=== PATIENT | male | born 1950 | race Caucasian/White ===

== ENCOUNTER 2023-06-26 13:24 | Outpatient (REF) | payer MEDICARE, SELFPAY ==
[2023-06-26 16:07] LABS: MANUAL DIFF FLAG NO
[2023-06-26 16:27] LABS: Appearance Urine Clear; Basophils Percent Auto 0.4 % (0-2); Color Urine Yellow; Eosinophils Absolute Auto 0.1 X10*3/uL (0.0-0.4); Eosinophils Percent Auto 2.1 % (0-4); Glucose Urine UA Negative (Negative); Hematocrit 44.4 % (42.0-52.0); Hemoglobin 14.8 g/dl (14.0-18.0); Imm Gran Abs Auto 0.01 X10*3/uL (0.00-0.03); Imm Gran Pct Auto 0.2 % (0.0-0.4); Leukocyte Esterase Urine Negative (Negative); Lymphocytes Absolute Auto 1.4 X10*3/uL (1.2-4.9); Lymphocytes Percent Auto 28.7 % (20-40); Mean Corpuscular HGB Conc 33.3 g/dl (31.0-36.0); Mean Corpuscular Hemoglobin 28.6 pg (27.0-33.0); Mean Corpuscular Volume 85.9 fL (80.0-98.0); Mean Platelet Volume 11.3 fL (9.4-12.4); Monocytes Absolute Auto 0.3 X10*3/uL (0.1-1.2); Monocytes Percent Auto 5.5 % (2-11); Neutrophils Percent Auto 63.1 % (45-73); Nitrite Urine Negative (Negative); PH 7.5 (5.0-9.0); Platelet Count 217 X10*3/uL (160-400); Red Blood Count 5.17 X10*6/uL (4.60-5.80); Red Cell Distribution Width 13.3 % (11.0-16.0); Urine Blood Negative (Negative); Urine Ketones Negative (Negative); Urine Protein Negative (Neg-Trace); White Blood Count 4.7 X10*3/uL (4.8-10.8)
[2023-06-26 16:33] LABS: Bacteria Urine None Seen (None Seen); Hyaline Casts Urine 0-2 /LPF (0-2); RBC Urine 0-2 /HPF (0-2); Squamous Epithelial Cell Urine 0-2 /HPF (0-2); WBC Urine 0-5 /HPF (0-5)
[2023-06-26 16:47] LABS: Alanine Aminotransferase 34 U/L (0-40); Albumin Level 4.3 g/dL (3.5-5.0); Alkaline Phosphatase 57 U/L (39-117); Anion Gap 13 (12-20); Aspartate Amino Transferase 37 U/L (5-37); Bilirubin Total 0.6 mg/dL (0.0-1.0); Blood Urea Nitrogen 17 mg/dL (9-16); Calcium 9.4 mg/dL (8.4-10.2); Carbon Dioxide 24 mmol/L (22-29); Chloride 105 mmol/L (96-108); Cholesterol 199 mg/dL; Estimated Glomerular Filt Rate > 60; Glucose Fasting 87 mg/dL (60-99); HDL Cholesterol 69 mg/dL; LDL Cholesterol Calculated 118 mg/dl; Sodium 138 mmol/L (135-145); Total Protein 7.3 g/dL (6.5-8.0); Triglycerides 63 mg/dL
[2023-06-26 17:03] LABS: PSA,Total (Free>4and<10) 2.44 ng/mL (0.00-4.00)
== END 2023-06-26 13:25 | disposition home or self-care (01) ==
LOC: HO.HMGCLDS 13:24
PROVIDERS: PCP Internal Medicine; Visit Provider Internal Medicine
DX: Z12.5 Encounter for screening for malignant neoplasm of prostate (principal); I12.9 Hypertensive chronic kidney disease with stage 1 through stage 4 chronic kidney disease, or unspecified chronic kidney disease; N18.30 Chronic kidney disease, stage 3 unspecified; N40.0 Benign prostatic hyperplasia without lower urinary tract symptoms; E78.5 Hyperlipidemia, unspecified
CPT/HCPCS: 36415; 80053; 80061; 81001; 84153; 85025

== ENCOUNTER 2023-07-28 10:14 | Outpatient (AMB) | payer MEDICARE, SELFPAY ==
--- NOTE | 2023-07-28 10:15 | A.OFFPC_ITS ---
Vital Signs 07/28/23 10:16 Height 5 ft 9 in Weight 170 lb BMI 25.1 BP 122/80 Blood Pressure Location Lt brachial Position Sitting Pulse 74 Pulse Source Pulse Oximeter Pulse Oximetry (%) 98 Oxygen Delivery Method Room Air Intake Visit Reasons: 2m follow up CKD Intake Note: Pt is here today for 2 months follow up visit. Allergies No Known Allergies Allergy (Verified 07/28/23 10:17) Medication List - Last Reconciled 07/28/23 by Sadie Song MD bupropion HCl 150 mg PO Q12H doxazosin 6 mg PO DAILY lisinopril-hydrochlorothiazide 20-12.5 mg 1 tab PO DAILY lovastatin 40 mg PO DAILY sildenafil 50 mg PO DAILY PRN Tobacco use date assessed: 04/28/23 Dental Screening Dental Screen Date: 07/28/23 Did you have a dental visit in the last 12 months?: Yes Did you have a dental problem in the last 6 months where you did not have access to dental care?: No Was dental information given to patient?: Patient has dentist HPI 2m follow up CKD HPI Details Patient presents for the follow-up on hypertension and hyperlipidemia, controlled on current medications. [facility] Medical History (Updated 07/28/23 @ 11:02 by Sadie Song MD) Annual physical exam Family History (Updated 04/28/23 @ 08:19 by Sadie Song MD) Brother No problems noted. 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 Marcus Bower, Mana Early, Florentin Singh and colleagues, with an educational natanael from [employer] Review of Systems Const All systems reviewed & are unremarkable except as noted in HPI and below Reports no additional complaints Eyes Reports no additional complaints ENT Reports no additional complaints Card Reports no additional complaints Resp Reports no additional complaints GI Reports no additional complaints Reports no additional complaints Physical exam (Primary Care) Vital Signs: Last Vital Signs Pulse 74 07/28/23 10:16 BP 122/80 07/28/23 10:16 Pulse Ox 98 07/28/23 10:16 Oxygen Delivery Method Room Air 07/28/23 10:16 BMI result Body Mass Index 25.1 Tobacco/Smoking Status: Tobacco use Status Tobacco use date assessed 04/28/23 07/28/23 10:20 Patient Tobacco Use Status Former Tobacco user 07/28/23 10:20 e-Cigarette/Vaping Use Currently Using 07/28/23 10:20 Thrive Assessment: Date of Thrive Assessment Date Thrive assessed 04/28/23 07/28/23 10:20 Const General: no acute distress HENMT Face and sinus: Yes normal facial exam Eyes General: appearance normal, both eyes and all related structures Resp Effort & Inspection: normal respiratory effort Auscultation: clear to auscultation bilaterally Cardio Rhythm: regular rhythm Heart sounds: S1 normal heart sound present and S2 normal heart sound present GI Inspection: Yes normal to inspection Palpation (GI): Soft to palpation Assessment and Plan Assessment & Plan (1) Annual physical exam: Code(s): Z00.00 - Encounter for general adult medical examination without abnormal findings (2) Hyperlipidemia: Code(s): E78.5 - Hyperlipidemia, unspecified Plan: cont statin (3) HTN (hypertension): Code(s): I10 - Essential (primary) hypertension Plan: Continue current medications, return for physical in April (4) Memory loss: Comment: Patient declined neuropsychological evaluation Code(s): R41.3 - Other amnesia Orders: Orders Comprehensive [place]. Panel Fast 04/22/24 E78.5 - Hyperlipidemia, unspecified, I10 - Essential (primary) hypertension, Z00.00 - Encounter for general adult medical examination without abnormal findings Complete Blood Count Auto Diff 04/22/24 E78.5 - Hyperlipidemia, unspecified, I10 - Essential (primary) hypertension, Z00.00 - Encounter for general adult medical examination without abnormal findings Lipid Panel 04/22/24 E78.5 - Hyperlipidemia, unspecified, I10 - Essential (primary) hypertension, Z00.00 - Encounter for general adult medical examination without abnormal findings TSH reflex Free T4 04/22/24 E78.5 - Hyperlipidemia, unspecified, I10 - Essential (primary) hypertension, Z00.00 - Encounter for general adult medical examination without abnormal findings PSA,Total (Free>4and<10) 04/22/24 E78.5 - Hyperlipidemia, unspecified, I10 - Essential (primary) hypertension, Z00.00 - Encounter for general adult medical examination without abnormal findings UA w Microscopic 04/22/24 E78.5 - Hyperlipidemia, unspecified, I10 - Essential (primary) hypertension, Z00.00 - Encounter for general adult medical examination without abnormal findings Uric Acid 04/22/24 E78.5 - Hyperlipidemia, unspecified, I10 - Essential (primary) hypertension, Z00.00 - Encounter for general adult medical examination without abnormal findings Medications: New prednisone 4 tabl qd for 3 days, then 3 tabl qd for 3 days, then 2 tabl qd x 3 days, then 1 tabl qd x 3days 10 mg PO DAILY 30 tabs 0RF sildenafil administer 30 minutes to 4 hours before activity 100 mg PO DAILY PRN 10 tabs 3RF sexual activity Discontinued sildenafil administer 30 minutes to 4 hours before activity Discontinued Reason: Doctor's Order 50 mg PO DAILY PRN 10 tabs 0RF sexual activity Coding Level of Care Code Est Pt Level 3 (67586) Diagnoses Annual physical exam Z00.00 Hyperlipidemia E78.5 HTN (hypertension) I10 Memory loss R41.3
[2023-07-28 10:16] VITALS: BP 122/80; PULSE 74; O2SAT 98; BMI 25.1
== END 2023-07-28 11:03 | disposition home or self-care (01) ==
PROVIDERS: PCP Internal Medicine; Visit Provider Internal Medicine
DX: E78.5 Hyperlipidemia, unspecified (principal); I10 Essential (primary) hypertension; R41.3 Other amnesia
CPT/HCPCS: 99213

== ENCOUNTER 2024-03-14 08:13 | Outpatient (AMB) | payer MEDICARE, SELFPAY ==
[2024-03-14 08:23] VITALS: BP 104/70; PULSE 63; O2SAT 98; BMI 25.8
--- NOTE | 2024-03-14 08:23 | MHC.PC.OV ---
Vital Signs 03/14/24 08:23 Height 5 ft 9 in Weight 175 lb BMI 25.8 BP 104/70 Blood Pressure Location Lt brachial Position Sitting Pulse 63 Pulse Source Pulse Oximeter Pulse Oximetry (%) 98 Oxygen Delivery Method Room Air Intake Visit Reasons: abdominal pain Intake Note: Pt is here today for a sick visit. Pt c/o problem with bowel movement. Allergies No Known Allergies Allergy (Verified 03/14/24 08:34) Medication List - Last Reconciled 03/14/24 by Sadie Song MD doxazosin 6 mg (1.5 x 4 mg) PO DAILY lisinopril-hydrochlorothiazide 20-12.5 mg 1 tab PO DAILY lovastatin 40 mg PO DAILY prednisone 10 mg PO DAILY PRN sildenafil 100 mg PO DAILY PRN Tobacco use date assessed: 03/14/24 Fall risk assessment: No Falls in past year Last assessed Fall Risk: 03/14/24 Dental Screening Dental Screen Date: 03/14/24 Did you have a dental visit in the last 12 months?: Yes Did you have a dental problem in the last 6 months where you did not have access to dental care?: No Was dental information given to patient?: Patient has dentist HPI abdominal pain HPI Details Pt presents c/o 2 weeks of constipation and abd discomfort improved after taking a laxative. Patient reports that he noticed a change in his stool shape be coming more pencil like. He denies hematochezia melena nausea vomiting or weight loss. Hypertension and hyperlipidemia are controlled on current medications [facility] Medical History Annual physical exam Surgical History S/P tonsillectomy Family History Brother No problems noted. 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 1. Little interest or pleasure in doing things: not at all 2. Feeling down, depressed, or hopeless: several days 3. Trouble falling or staying asleep, or sleeping too much: not at all 4. Feeling tired or having little energy: several days 5. Poor appetite or overeating: not at all 6. Feeling bad about yourself - or that you are a failure or have let yourself or your family down: several days 7. Trouble concentrating on things, such as reading the newspaper or watching television: not at all 8. Moving or speaking so slowly that other people could have noticed. Or the opposite - being so fidgety or restless that you have been moving around a lot more than usual: not at all 9. Thoughts that you would be better off or of hurting yourself in some way: not at all Total score: 3 Depression Screening Interpretation: Negative Depression Screening Done: Yes Source: Developed by Drs. Marcus Bower, Mana Early, Florentin Singh and colleagues, with an educational natanael from [employer]. Thrive Questionnaire Date Thrive assessed: 03/14/24 I am a: Patient What is your living situation today?: I have a steady place to live Within the past 12 months, did the food you bought not last and you didn't have the money to get more?: Never true Within the past 12 months, did you worry whether your food would run out before you got money to buy more?: Never true Do you have trouble paying for medicines?: No Do you have trouble getting transportation to medical appointments?: No Do you have trouble paying your heating and electricity bill?: No Do you have trouble taking care of your child, family member or friend?: No Do you have trouble with day-to-day activities such as bathing, preparing meals, shopping, managing finances, etc.?: No Are you currently unemployed and looking for a job?: No Are you interested in more education?: No Please select the resources that you would like help with: None THRIVE Score: 0 AUDIT C Alcohol Use Questionnaire (AUDIT-C) 1. How often do you have a drink containing alcohol?: Monthly or less 2. How many drinks containing alcohol do you have on a typical day when you are drinking?: 1 or 2 3. How often do you have six or more drinks on one occasion?: Never Total Score: 1 TIANNA-7 AMB Questionnaire TIANNA-7 Date TIANNA - 7 assessed: 03/14/24 Feeling nervous, anxious, or on edge: 0 = Not at all Not being able to stop or control worryin = Not at all Worrying too much about different things: 0 = Not at all Trouble relaxin = Not at all Being so restless that it is hard to sit still: 0 = Not at all Becoming easily annoyed or irritable: 0 = Not at all Feeling afraid as if something awful might happen: 0 = Not at all Total TIANNA-7 score (0-4 normal; 5-9 mild; 10-14 moderate; 15-21 severe): 0 Source: Developed by Drs. Marcus Bower, Mana Early, Florentin Singh and colleagues, with an educational natanael from [employer]. Review of Systems Const All systems reviewed & are unremarkable except as noted in HPI and below Reports no additional complaints Eyes Reports no additional complaints ENT Reports no additional complaints Card Reports no additional complaints Resp Reports no additional complaints Reports no additional complaints Physical exam (Primary Care) Vital Signs: Last Vital Signs Pulse 63 03/14/24 08:23 BP 104/70 03/14/24 08:23 Pulse Ox 98 03/14/24 08:23 Oxygen Delivery Method Room Air 03/14/24 08:23 BMI result Body Mass Index 25.8 Tobacco/Smoking Status: Tobacco use Status Tobacco use date assessed 03/14/24 03/14/24 08:38 Patient Tobacco Use Status Former Tobacco user 03/14/24 08:38 e-Cigarette/Vaping Use Currently Using 03/14/24 08:23 PHQ-9: PHQ-9 Score PHQ-9: Total score 3 03/14/24 08:43 Depression Screening Interpretation: Negative Thrive Assessment: Date of Thrive Assessment Date Thrive assessed 03/14/24 03/14/24 08:43 Const General: no acute distress HENMT Head: Yes normal to inspection Throat: Yes posterior oropharynx normal Eyes General: appearance normal, both eyes and all related structures Neck Neck: Yes no lymphadenopathy and Yes supple Resp Effort & Inspection: normal respiratory effort Auscultation: clear to auscultation bilaterally Cardio Rhythm: regular rhythm Heart sounds: S1 normal heart sound present and S2 normal heart sound present GI Inspection: Yes normal to inspection Palpation (GI): Soft to palpation Percussion: Yes normal to percussion Auscultation: normal bowel sounds Assessment and Plan Assessment & Plan (1) CKD (chronic kidney disease) stage 3, GFR 30-59 ml/min: Code(s): N18.30 - Chronic kidney disease, stage 3 unspecified Plan: Avoid nephrotoxin monitor renal function (2) HTN (hypertension): Code(s): I10 - Essential (primary) hypertension Plan: Continue current medications (3) Liver disease: Comment: ETOH Code(s): K76.9 - Liver disease, unspecified (4) Hyperlipidemia: Code(s): E78.5 - Hyperlipidemia, unspecified Plan: Continue statin (5) Constipation: Code(s): K59.00 - Constipation, unspecified Plan: FOR NEW ONSET CONSTIPATION PATIENT WAS ADVISED TO CALL HIS TUBE LANCER AT [facility] TO SCHEDULE A COLONOSCOPY. HIS MOST RECENT ONE WAS IN 2017. COLOGUARD WILL BE CHECKED. Increase fiber, fluid intake and regular physical activity discussed with the patient. Orders: Orders Complete Blood Count Auto Diff Today E78.5 - Hyperlipidemia, unspecified, F32.A - Depression, unspecified, I10 - Essential (primary) hypertension, K76.9 - Liver disease, unspecified, N18.30 - Chronic kidney disease, stage 3 unspecified IRON PROFILE Today E78.5 - Hyperlipidemia, unspecified, F32.A - Depression, unspecified, I10 - Essential (primary) hypertension, K76.9 - Liver disease, unspecified, N18.30 - Chronic kidney disease, stage 3 unspecified Lipid Panel Today E78.5 - Hyperlipidemia, unspecified, F32.A - Depression, unspecified, I10 - Essential (primary) hypertension, K76.9 - Liver disease, unspecified, N18.30 - Chronic kidney disease, stage 3 unspecified PSA,Total (Free>4and<10) Today E78.5 - Hyperlipidemia, unspecified, F32.A - Depression, unspecified, I10 - Essential (primary) hypertension, K76.9 - Liver disease, unspecified, N18.30 - Chronic kidney disease, stage 3 unspecified UA w Microscopic Today E78.5 - Hyperlipidemia, unspecified, F32.A - Depression, unspecified, I10 - Essential (primary) hypertension, K76.9 - Liver disease, unspecified, N18.30 - Chronic kidney disease, stage 3 unspecified Comprehensive Met. Panel Today E78.5 - Hyperlipidemia, unspecified, F32.A - Depression, unspecified, I10 - Essential (primary) hypertension, K76.9 - Liver disease, unspecified, N18.30 - Chronic kidney disease, stage 3 unspecified TSH reflex Free T4 Today E78.5 - Hyperlipidemia, unspecified, F32.A - Depression, unspecified, I10 - Essential (primary) hypertension, K76.9 - Liver disease, unspecified, N18.30 - Chronic kidney disease, stage 3 unspecified Referrals Cologuard Test E78.5 - Hyperlipidemia, unspecified, F32.A - Depression, unspecified, I10 - Essential (primary) hypertension, K76.9 - Liver disease, unspecified, N18.30 - Chronic kidney disease, stage 3 unspecified, Z12.11 - Encounter for screening for malignant neoplasm of colon, Z12.12 - Encounter for screening for malignant neoplasm of rectum Medications: Changed From prednisone 4 tabl qd for 3 days, then 3 tabl qd for 3 days, then 2 tabl qd x 3 days, then 1 tabl qd x 3days 10 mg PO DAILY 30 tabs 0RF To prednisone 4 tabl qd for 3 days, then 3 tabl qd for 3 days, then 2 tabl qd x 3 days, then 1 tabl qd x 3days 10 mg PO DAILY PRN Coding Level of Care Code Est Pt Level 4 (62062) Diagnoses CKD (chronic kidney disease) stage 3, GFR 30-59 ml/min N18.30 HTN (hypertension) I10 Liver disease K76.9 Hyperlipidemia E78.5 Constipation K59.00
== END 2024-03-14 09:26 | disposition home or self-care (01) ==
PROVIDERS: PCP Internal Medicine; Visit Provider Internal Medicine
DX: I12.9 Hypertensive chronic kidney disease with stage 1 through stage 4 chronic kidney disease, or unspecified chronic kidney disease (principal); N18.30 Chronic kidney disease, stage 3 unspecified; K76.9 Liver disease, unspecified; E78.5 Hyperlipidemia, unspecified; K59.00 Constipation, unspecified
CPT/HCPCS: 99214

== ENCOUNTER 2024-08-02 09:21 | Outpatient (REF) | payer MEDICARE, SELFPAY ==
[2024-08-02 13:09] LABS: MANUAL DIFF FLAG NO
[2024-08-02 13:17] LABS: Appearance Urine Clear; Basophils Percent Auto 0.2 % (0-2); Color Urine Yellow; Eosinophils Absolute Auto 0.1 X10*3/uL (0.0-0.4); Eosinophils Percent Auto 2.5 % (0-4); Glucose Urine UA Negative (Negative); Hematocrit 43.1 % (42.0-52.0); Hemoglobin 14.6 g/dl (14.0-18.0); Imm Gran Abs Auto 0.01 X10*3/uL (0.00-0.03); Imm Gran Pct Auto 0.2 % (0.0-0.4); Leukocyte Esterase Urine Negative (Negative); Lymphocytes Absolute Auto 1.2 X10*3/uL (1.2-4.9); Lymphocytes Percent Auto 30.5 % (20-40); Mean Corpuscular HGB Conc 33.9 g/dl (31.0-36.0); Mean Corpuscular Hemoglobin 28.2 pg (27.0-33.0); Mean Corpuscular Volume 83.2 fL (80.0-98.0); Mean Platelet Volume 11.2 fL (9.4-12.4); Monocytes Absolute Auto 0.3 X10*3/uL (0.1-1.2); Monocytes Percent Auto 6.7 % (2-11); Neutrophils Absolute Auto 2.4 x10*3/uL (2.0-8.3); Neutrophils Percent Auto 59.9 % (45-73); Nitrite Urine Negative (Negative); PH 7.5 (5.0-9.0); Platelet Count 213 X10*3/uL (160-400); Red Blood Count 5.18 X10*6/uL (4.60-5.80); Red Cell Distribution Width 13.7 % (11.0-16.0); Specific Gravity - Urine 1.015 (1.005-1.025); Urine Blood Negative (Negative); Urine Ketones Trace mg/dL (Negative); Urine Protein Negative (Neg-Trace)
[2024-08-02 13:24] LABS: Bacteria Urine None Seen (None Seen); Hyaline Casts Urine 0-2 /LPF (0-2); RBC Urine 0-2 /HPF (0-2); Squamous Epithelial Cell Urine 0-2 /HPF (0-2); WBC Urine 0-5 /HPF (0-5)
[2024-08-02 13:45] LABS: Alanine Aminotransferase 42 U/L (0-40); Albumin Level 4.3 g/dL (3.5-5.0); Alkaline Phosphatase 56 U/L (39-117); Anion Gap 14 (12-20); Aspartate Amino Transferase 58 U/L (5-37); Bilirubin Total 0.8 mg/dL (0.0-1.0); Blood Urea Nitrogen 12 mg/dL (9-16); Calcium 9.7 mg/dL (8.4-10.2); Carbon Dioxide 25 mmol/L (22-29); Chloride 101 mmol/L (96-108); Cholesterol 181 mg/dL (<200); Estimated Glomerular Filt Rate > 60; Glucose Fasting 84 mg/dL (60-99); HDL Cholesterol 66 mg/dL (>40); Iron 117 mcg/dL (45-160); LDL Cholesterol Calculated 105 mg/dL (<100); Percent Iron Saturation 40 % (15-50); Potassium 3.9 mmol/L (3.3-5.1); Sodium 136 mmol/L (135-145); Total Iron Binding Capacity 290 mcg/dL (228-428); Total Protein 7.2 g/dL (6.5-8.0); Triglycerides 54 mg/dL (<150); Unsaturated Iron Binding 173 ug/dL; Uric Acid 7.7 mg/dL (3.4-7.0)
[2024-08-02 13:47] LABS: PSA,Total (Free>4and<10) 2.97 ng/mL (0.00-4.00); TSH reflex Free T4 1.88 uIU/mL (0.32-4.0)
== END 2024-08-02 09:22 | disposition home or self-care (01) ==
LOC: HO.HMGCLDS 09:21
PROVIDERS: PCP Internal Medicine; Visit Provider Internal Medicine
DX: Z00.00 Encounter for general adult medical examination without abnormal findings (principal); E78.5 Hyperlipidemia, unspecified; I10 Essential (primary) hypertension; F32.A Depression, unspecified; K76.9 Liver disease, unspecified; N18.30 Chronic kidney disease, stage 3 unspecified; Z12.5 Encounter for screening for malignant neoplasm of prostate
CPT/HCPCS: 36415; 80053; 80061; 81001; 83540; 84153; 84443; 84550; 85025

== ENCOUNTER 2024-08-10 10:58 | Outpatient (AMB) | payer MEDICARE, SELFPAY ==
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
[2024-08-10 11:03] VITALS: BP 138/82; PULSE 82; O2SAT 98; BMI 25.5
== END 2024-08-10 12:23 | disposition home or self-care (01) ==
PROVIDERS: PCP Internal Medicine; Visit Provider Internal Medicine
DX: G62.9 Polyneuropathy, unspecified (principal); R00.2 Palpitations; N52.9 Male erectile dysfunction, unspecified; R09.89 Other specified symptoms and signs involving the circulatory and respiratory systems; R79.89 Other specified abnormal findings of blood chemistry

== ENCOUNTER → 2024-08-10 10:58 | Outpatient (BNVA) | payer MEDICARE, SELFPAY | PROVIDERS: PCP Internal Medicine; Visit Provider Internal Medicine | DX: R00.2 Palpitations (principal); G62.9 Polyneuropathy, unspecified; R09.89 Other specified symptoms and signs involving the circulatory and respiratory systems; R79.89 Other specified abnormal findings of blood chemistry | CPT/HCPCS: 99212 ==

== ENCOUNTER 2024-08-11 12:31 | Outpatient (REF) | payer MEDICARE, SELFPAY ==
[2024-08-11 16:49] LABS: Alanine Aminotransferase 47 U/L (0-40); Albumin Level 4.4 g/dL (3.5-5.0); Alkaline Phosphatase 60 U/L (39-117); Aspartate Amino Transferase 54 U/L (5-37); Bilirubin Direct 0.2 mg/dL (0.0-0.5); Bilirubin Total 0.5 mg/dL (0.0-1.0); Total Protein 7.4 g/dL (6.5-8.0)
[2024-08-11 17:07] LABS: Vitamin D 25-OH Total 39.5 ng/mL (>30)
[2024-08-11 17:21] LABS: Folate 8.9 ng/mL (> or = 4.0); Vitamin B12 524 pg/mL (200-900)
[2024-08-19 06:18] LABS: Vitamin B1 11 nmol/L (8-30)
== END 2024-08-11 12:32 | disposition home or self-care (01) ==
LOC: HO.HMGCLDS 12:31
PROVIDERS: PCP Internal Medicine; Visit Provider Internal Medicine
DX: R79.89 Other specified abnormal findings of blood chemistry (principal); G62.9 Polyneuropathy, unspecified
CPT/HCPCS: 36415; 80076; 82306; 82607; 82746; 84425

== ENCOUNTER 2024-09-08 09:31 | Outpatient (REF) | payer MEDICARE, SELFPAY ==
--- NOTE | ~2024-09-08 | US_ITS ---
EXAMINATION: US ABDOMEN LIMITED WITH LIVER ELASTOGRAPHY CLINICAL INFORMATION: Elevated LFTs COMPARISON: None available. TECHNIQUE: Real-time imaging of the abdominal viscera. Noninvasive ultrasound liver fibrosis assessment is performed using Pérez ElastPQ point quantification shear wave elastography (pSWE) with a 5 MHz transducer. Multiple elastography samples are obtained. FINDINGS: PANCREAS: Normal. The visualized pancreatic head and body are normal in appearance. The remainder of the pancreas is obscured from visualization by the overlying bowel gas. LIVER: Normal. The liver demonstrates normal size, contour and echogenicity. No focal lesion or intrahepatic biliary duct dilatation. The right lobe measures 13.5 cm in length. The left lobe measures 8.0 cm in length. Shear wave elastography provides a median stiffness of 2.01 m/s (reference: normal median stiffness is 0.81 - 1.22 m/s). The IQR/median stiffness to assess sampling precision is 0.17 (reference: optimal IQR/median stiffness is under 0.3). GALLBLADDER: Multiple shadowing stones seen within the gallbladder. No significant gallbladder wall thickening or pericholecystic fluid COMMON BILE DUCT: Normal in caliber measuring 0.5 cm in diameter. RIGHT KIDNEY: There are 2 anechoic simple cysts within the right kidney. Large exophytic cyst off the upper pole measures 7.8 x 7.4 x 6.6 cm. Exophytic cyst off the lower pole measures 3.5 x 3.4 x 3.5 cm. No follow-up indicated. No hydronephrosis. No renal calculi or focal parenchymal lesions. The kidney measures 11.3 cm in maximum dimension. FREE FLUID: None. US/US abdomen castro w elastography IMPRESSION: 1. Liver parenchyma appears unremarkable. 2. Elastography: Liver elastography measurements are consistent with a high risk for clinically significant liver fibrosis (METAVIR Stage F3-F4). Electronically signed by: Jamel Chapin MD 09/20/2024 08:05 AM EDT
--- NOTE | ~2024-09-08 | US_ITS ---
EXAMINATION: US EXTRACRANIAL CAROTID DUPLEX, BILATERAL CLINICAL INFORMATION: Carotid bruit COMPARISON: None available. TECHNIQUE: Real-time ultrasound and Doppler techniques (integrating B-mode 2-D vascular images, Doppler spectral analysis and color-flow Doppler imaging) were utilized to interrogate the extracranial carotid arteries, the vertebral arteries and proximal subclavian arteries bilaterally. The degree of stenosis is determined by criteria similar to NASCET. FINDINGS: Right Side: 1. There is no significant atherosclerotic plaque seen in the bifurcation/proximal ICA region. 2. The common carotid artery PSV proximally is 64.6 cm/s and distally 50.4 cm/s. 3. The proximal internal carotid artery velocities are 40.8 cm/s systolic and 14.6 cm/s diastolic. 4. The proximal external carotid artery PSV is 60.2 cm/s. 5. The vertebral artery shows antegrade flow. 6. The subclavian artery waveforms are normal. Left Side: 1. There is mild atherosclerotic plaque seen in the bifurcation/proximal ICA region. 2. The common carotid artery PSV proximally is 111 cm/s and distally 63.1 cm/s. 3. The proximal internal carotid artery velocities are 42.8 cm/s systolic and 7.7 cm/s diastolic. 4. The proximal external carotid artery PSV is 52 cm/s. 5. The vertebral artery shows antegrade flow. 6. The subclavian artery waveforms are normal. US/US carotid duplex BI IMPRESSION: 1. RIGHT: Normal right internal carotid artery without atherosclerotic plaque or hemodynamically significant stenosis. 2. LEFT: Minimal, non-hemodynamically significant stenosis of the proximal left internal carotid artery corresponding to a 0-49% stenosis by velocity criteria. Electronically signed by: Jamel Chapin MD 09/20/2024 07:44 AM EDT
== END 2024-09-08 09:32 | disposition home or self-care (01) ==
LOC: HO.US 09:31
PROVIDERS: PCP Internal Medicine; Visit Provider Internal Medicine
DX: R09.89 Other specified symptoms and signs involving the circulatory and respiratory systems (principal); R79.89 Other specified abnormal findings of blood chemistry
CPT/HCPCS: 76705; 76981; 93880

== ENCOUNTER 2024-09-15 09:07 | Outpatient (AMB) | payer MEDICARE, SELFPAY ==
[2024-09-15 09:09] VITALS: BP 110/78; PULSE 54; O2SAT 96; BMI 26.0
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
== END 2024-09-15 10:09 | disposition home or self-care (01) ==
PROVIDERS: PCP Internal Medicine; Visit Provider Internal Medicine
DX: Z00.00 Encounter for general adult medical examination without abnormal findings (principal); I10 Essential (primary) hypertension; G62.9 Polyneuropathy, unspecified; E78.5 Hyperlipidemia, unspecified; K76.9 Liver disease, unspecified; R79.89 Other specified abnormal findings of blood chemistry

== ENCOUNTER → 2024-09-15 09:07 | Outpatient (BNVA) | payer MEDICARE, SELFPAY | PROVIDERS: PCP Internal Medicine; Visit Provider Internal Medicine | DX: Z00.01 Encounter for general adult medical examination with abnormal findings (principal); I10 Essential (primary) hypertension; G62.9 Polyneuropathy, unspecified; E78.5 Hyperlipidemia, unspecified; R79.89 Other specified abnormal findings of blood chemistry; K76.9 Liver disease, unspecified | CPT/HCPCS: 99397 ==

== ENCOUNTER 2024-11-08 14:34 | Outpatient (AMB) | payer MEDICARE, SELFPAY ==
--- OUTSIDE RECORDS SUMMARY | 2024-11-08 14:36 | XMS_ITS ---
[facility] Name [facility] Unknown History of Medication Use Medication Directions Dispensed Refills Start Date End Date Stat amLODIPine (NORVASC) 5 MG tablet Take 5 mg by mouth daily. 10/12/2024 11/22/9999 active aspirin enteric coated (ECOTRIN LOW STRENGTH) 81 MG EC tablet Take 81 mg by mouth daily. 10/12/2024 11/22/9999 active lisinopril-hydrochl orothiazide (PRINZIDE,ZESTORETI C) 20-12.5 MG per tablet Take by mouth. 10/12/2024 11/22/9999 active sildenafil (REVATIO) 20 MG tablet TAKE DIRECTED, 1 HR PRIOR TO NEED 10/12/2024 11/22/9999 active buPROPion (WELLBUTRIN SR) 150 MG 12 hr tablet Take by mouth 2 (two) times a day. 10/12/2024 11/22/9999 active lovastatin (MEVACOR) 10 MG tablet Take 10 mg by mouth daily. 10/12/2024 11/22/9999 active Problems Problem Status Onset Date Problem Type Date of Resoluti on Source Abnormal liver function active 2018-08-04 ProblemAct [facility] Liver disease active EncounterDiagnosisAct [facility] Immunizations Vaccine Date Source Lot Number Status Covid-19 MRNA Vaccine - Pfiz er 12+ (Purple Cap) 03/02/2021 [facility] [id number] completed Covid-19 MRNA Vaccine - Pfiz er 12+ (Purple Cap) 02/09/2021 [facility] [id number] completed Covid-19 MRNA Vaccine - Pfiz er 12+ (Purple Cap) 09/12/2021 [facility] [id number] completed
--- NOTE | 2024-11-08 14:51 | A.OFFVIS_ITS ---
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 Draper. He presents to the office today as a new patient for erectile dysfunction. In discussion with the patient today he reports a longstanding history of erectile dysfunction over the last 30-40 years. He reports previously following up with a urologist in the past and has undergone penile injection therapy for erectile dysfunction that he did not find helpful. He reports being on Viagra for many years and feels this is also not helpful or no longer working for him. He does report being able to obtain an erection however does not feel it is adequate for penetration. When asked he does report episodes of nocturia up to 3 times per night however does not find this bothersome. He otherwise denies urinary urgency, urinary frequency , incontinence,hematuria, dysuria, foul smelling urine, changes to urinary stream, flank pain, fever, and or chills.He is happy with his current voiding parameters. We discussed at length potential causes of erectile dysfunction as well as further treatment options and risks and benefits of these treatment options. He does report sexual desire however has not had his testosterone recently assessed and would like to do so. In review of patient's chart it appears PSA 08/16 3.0. He otherwise offers no other issues or concerns at this time. [facility] Medical History Annual physical exam Surgical History S/P tonsillectomy Family History Brother No problems noted. 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 [place], Housing: House Alcohol intake: current Patient Tobacco Use Status: Former Tobacco user e-Cigarette/Vaping Use: Currently Using service: No Current occupational status: unemployed and retired Cognitive needs: No Hearing needs: No Vision needs: Yes Review of Systems Const All systems reviewed & are unremarkable except as noted in HPI and below Physical Exam Const General: cooperative, healthy appearing, comfortable, no acute distress, well developed, alert and awake Orientation/consciousness: patient oriented x3 Limitations: no limitations HEENT Head: Yes normal to inspection, Yes normocephalic and Yes atraumatic Ears: hearing grossly normal bilaterally Eyes General: appearance normal, both eyes and all related structures Neck Neck: Yes normal visual inspection and Yes trachea midline Chest Chest palpation & inspection: normal inspection of the chest Resp Effort & Inspection: normal respiratory effort and able to speak in complete sentences Cardio Rate: regular rate GI Inspection: Yes normal to inspection General: Yes no CVA tenderness Back/Spine/Pelvis Back: no CVA tenderness Skin General skin exam: no rashes or lesions noted Neuro General: patient oriented x3 Extrem General: Yes normal to inspection Psych Appearance: grossly normal and well kempt Mental Status: mental status grossly normal Speech and movement: Normal speech and movement present and Clear speech present Affect: normal affect Attitude: cooperative Thought process: Normal thought process present Thought content: Normal thought content present Insight: Fair insight present (Psych) Judgement: Fair judgement present (Psych) Results AMB Urinalysis, Automated UA Leukoctes 0 Ahsan/uL Last Edit by Christos Edouard on 11/08/24 15:34 UA Nitrite Last Edit by Christos Edouard on 11/08/24 15:34 UA Urobilinogen 0.2 mg/dL Last Edit by Crhistos Edouard on 11/08/24 15:34 UA Protein 0 mg/dL Last Edit by Christos Edouard on 11/08/24 15:34 UA pH 6.5 Last Edit by Christos Edouard on 11/08/24 15:34 UA Blood 0 Wilman/uL Last Edit by Christos Edouard on 11/08/24 15:34 UA Specific [place] 1.015 Last Edit by Christos Edouard on 11/08/24 15:34 UA Ketone Last Edit by Christos Edouard on 11/08/24 15:34 UA Bilirubin 0 mg/dL Last Edit by Christos Edouard on 11/08/24 15:34 UA Glucose 0 mg/dL Last Edit by Christos Edouard on 11/08/24 15:34 Results Reviewed Results Reviewed: Laboratory Last Values Urine pH (Auto) 6.5 11/08/24 15:33 Specific [place] (Auto) 1.015 11/08/24 15:33 Urine Protein (Auto) 0 mg/dL 11/08/24 15:33 Glucose (UA)(Auto) 0 mg/dL 11/08/24 15:33 Urine Blood (Auto) 0 Wilman/uL 11/08/24 15:33 Urine Bilirubin (Auto) 0 mg/dL 11/08/24 15:33 Urine Urobilinogen (Auto) 0.2 mg/dL 11/08/24 15:33 Leukocyte Esterase (Auto) 0 Ahsan/uL 11/08/24 15:33 Assessment & Plan Assessment & Plan (1) Erectile dysfunction: Code(s): N52.9 - Male erectile dysfunction, unspecified Category: Medical (2) Nocturia: Code(s): R35.1 - Nocturia Category: Medical Plan In office urinalysis results reviewed with the patient today; as noted above. We discussed at length potential causes and treatment options for erectile dysfunction and risks and benefits of these treatment options. Stop Viagra. Start Cialis 5 mg daily. P.r.n. prescription provided for Cialis. We discussed further treatment options to include penile ring, pump, TriMix therapy, and or penile prosthesis. Will obtain testosterone free and total for further assessment evaluation. Patient does report nocturia however does not find this bothersome and does not wish to undergo further workup at this time. Follow-up in [address] Leavitt as requested; or sooner with any issues, concerns, and or questions. Orders: Orders Testosterone, Free/Total Today E11.69 - Type 2 diabetes mellitus with other specified complication, N52.1 - Erectile dysfunction due to diseases classified elsewhere AMB Urinalysis Automated Today Z13.9 - Encounter for screening, unspecified Medications: New tadalafil (Cialis) [facility] Group [facility] DR33 [id number] 5 mg PO DAILY 90 days 90 tabs 0RF tadalafil (Cialis) Take 1 tablet 1 hour prior to sexual activity not to exceed more than 3 times per week. [facility] [address] [id number] 20 mg PO ONCE 30 days PRN 14 tabs 3RF sexual activity Discontinued sildenafil Discontinued Reason: Doctor's Order 100 mg PO DAILY PRN 10 tabs 3RF sexual activity Patient Instructions: The patient had an opportunity to ask questions regarding the treatment plan. All questions were answered. Physical exam, labs, and imaging were discussed and reviewed in detail. As well as risks, benefits, and discussion of treatment choices. No major barriers to understanding were identified. The patient expressed understanding and agreement with the above treatment plan. The patient was made aware they should contact our office by phone for worsening of their current condition, the appearance of new symptoms, or with any questions or concerns. Compliance is encouraged with any medications and follow up testing that is ordered. It is a privilege to be allowed the opportunity to participate in? your urological care.? Again, if you have any questions or co ncerns If you have any questions or concerns please do not hesitate to contact me. The office is [phone]. This note is constructed using voice recognition software. While every effort has been made to ensure accuracy kennel attendant errors may have been included. Yours sincerely, AMOS Manriquez Coding Level of Care Code New Pt Level 4 (65512) Diagnoses Erectile dysfunction N52.9 Nocturia R35.1
== END 2024-11-08 15:28 | disposition home or self-care (01) ==
PROVIDERS: PCP Internal Medicine; Visit Provider Nurse Practitioner Family
DX: N52.9 Male erectile dysfunction, unspecified (principal); R35.1 Nocturia; Z13.9 Encounter for screening, unspecified
CPT/HCPCS: 99204

== ENCOUNTER → 2024-11-08 14:34 | Outpatient (BNVA) | payer MEDICARE, SELFPAY | PROVIDERS: PCP Internal Medicine; Visit Provider Nurse Practitioner Family | DX: N52.9 Male erectile dysfunction, unspecified (principal); R35.1 Nocturia | CPT/HCPCS: 81003; 99202 ==

== ENCOUNTER → 2024-12-05 09:44 | Outpatient (REF) | payer MEDICARE, SELFPAY | LOC: HO.CARD 09:44 | PROVIDERS: PCP Internal Medicine; Visit Provider Internal Medicine | DX: R00.2 Palpitations (principal) | CPT/HCPCS: 93242 ==

== ENCOUNTER → 2024-12-05 09:48 | Outpatient (BNV) | payer MEDICARE, SELFPAY | PROVIDERS: PCP Internal Medicine; Visit Provider Internal Medicine Cardiovascular Disease | DX: I44.1 Atrioventricular block, second degree (principal); I49.1 Atrial premature depolarization; I49.3 Ventricular premature depolarization | CPT/HCPCS: 93244 ==

== ENCOUNTER 2024-12-30 15:03 | Outpatient (REF) | payer MEDICARE, SELFPAY ==
--- OUTSIDE RECORDS SUMMARY | 2024-12-30 15:07 | XMS_ITS | Encounter Summary ---
Author Organization [facility] Address [address] [place] [id number] Care Team Providers Care Polisher Apprentice Name Role Phone Damien Canseco MD Primary Care Provider [phone] Franklyn Royal MD Unavailable [phone] Roslyn Adler RN Unavailable [phone] Wagner Loza DO Unavailable [phone] Clifton Canseco MD Primary Care Provider [phone] Sadie Song MD Unavailable [phone] Encounter Details Date Type Department Care Team (Late st Contact Info) Description 08/03/2018 Scanned Document [facility] [address] [id number] Ana Silva MA 85 [facility] [address] [place] [address] Social History Tobacco Use Types Packs/Day Years Used Date Smoking Tobacco: Never Smokeless Tobacco: Never Alcohol Use Standard Drinks/Week Comments No 0 (1 standard drink = 0.6 oz pur e alcohol) AUDIT-C Answer Date Recorded Frequency of Alcohol Consumption Never 06/10/2018 Average Number of Drinks Not on file 018 Frequency of Binge Drinking Not on file 05/23 Sex and Gender Information Value Date Recorded Sex Assigned at Not on file Gender Identity Not on file Sexual Orientation Not on file documented as of this encounter Plan of Treatment Upcoming Encounters Date Type Department Care Team (Late st Contact Info) Description 01/06/2025 9:00 AM EST Consult [facility] [address] [place] [phone] Franklyn Royal MD [address] [place] [phone] documented as of this encounter Visit Diagnoses Not on filedocumented in this encounter Care Teams Polisher Apprentice Relationship Specialty Start Date End Date Damien Canseco MD PCP - General Internal Medicine 06/10/18 12/09/18 Clifton Canseco MD [address] [address] PCP - General Cardiovascular Disease 12/10/18 Franklyn Royal MD [address] [place] [phone] Hepatology 07/27/18 Roslyn Adler, RN [address] [place] [address] Registered Nurse Hepatology 07/27/18 Wagner Loza DO [address] [place] [address] Nephrology 08/04/18 Sadie Song MD [address] [place] [id number] Referring Provider 10/05/24 documented as of this encounter
--- OUTSIDE RECORDS SUMMARY | 2024-12-30 15:07 | XMS_ITS | Clinical Summary ---
Author Organization [facility] Address [address] [place] [address] Care Team Providers Care Sales Representative Public Utilities Name Role Phone Duane Dumas Primary Care Provider Unavailab le Medications LISINOPRIL-HCTZ (PRINZIDE,ZESTO RETIC) 20-12.5 MG per tablet TAKE 1 TABLET BY MOUTH EVERY DAY 90 1 8 Active Lovastatin (MEVACOR) 10 MG tablet TAKE 1 TABLET BY MOUTH EVERY DAY 90 1 9 Active Sildenafil Citrate (REVATIO) 20 MG tablet TAKE DIRECTED, 1 HR PRIOR TO NEED 100 0 9 Active amLODIPine Besylate (NORVASC) 5 MG tablet TAKE 1 TABLET BY MOUTH EVERY DAY 90 0 9 Active buPROPion HCl ER, SR, (WELLBUTRIN SR) 150 MG 12 hr tablet TAKE 1 TABLET BY MOUTH EVERY 12 HOURS...Pt needs to make an appointment before any refills will be granted 60 0 0 Active Active Problems Problem Noted Date Diagnosed Date Impairment of balance 11/01/2018 Overview (12/27/2023): Impression - [id number]: - mild, importance of maintaining good balanced discussed, dalia as pt's age, pt agrees, referred to PT for further eval/tx, will continue to monitor. Elevated serum creatinine 06/25/2018 Overview (12/27/2023): Impression - [id number]: - new finding for pt, may be r/t NSAID use and pt has stopped this, repeat BMP pending and urine labs pending for further eval, will contact pt with results, pt to continue to stay well-hydrated, will continue to monitor. Elevated liver enzymes 12/14/2017 Overview (12/27/2023): Impression - [id number]: - no s/s, pt has f/u appt with GI shortly, will continue to monitor. Impression - [id number]: - no s/s and no need to follow with GI, mild fatty liver, CMP pending, pt to continue to work on managing with diet/exercise/wgt loss as discussed, will continue to monitor. Depression 12/11/2017 Overview (12/27/2023): Impression - 11Dec2017: - chronic and stable, well-controlled, pt to continue bupropion at current dose, call if mood changes, and/or if pt develops SI/HI, will continue to monitor. Tubular adenoma 12/11/2017 Overview (12/27/2023): Impression - 11Dec2017: - due for repeat colonoscopy, pt is aware and will schedule, will continue to monitor.; Description: colonoscopy in 2010, due for repeat ED (erectile dysfunction) 12/11/2017 Overview (12/27/2023): Impression - 11Dec2017: - pt to continue with sildenafil as directed, will continue to monitor. Former smoker 12/11/2017 Overview (12/27/2023): Description: smoked for 10 yrs @ 2ppd, quit in 1990 Hallux limitus 12/11/2017 Overview (12/27/2023): Impression - 11Dec2017: - pt will consider PT, will continue to monitor. Hyperlipidemia 12/11/2017 Overview (12/27/2023): Impression - [id number]: - fasting lipids pending, pt to continue lovastatin at current dose, diet/exercise as discussed, will contact pt with results and adjust tx if indicated, will continue to monitor. Impression - [id number]: - fasting lipids pending, pt to continue lovastatin at current dose, diet/exercise/wgt loss as discussed, will contact pt with results and adjust tx if indicated, will continue to monitor. Benign essential hypertension 12/11/2017 Overview (12/27/2023): Impression - 11Dec2017: - chronic and stable, pt to continue amlodipine and combine HCTZ and lisinopril into 1 combo med but at current doses, diet/exercise as discussed, will continue to monitor. Impression - [id number]: - chronic and stable, pt to continue amlodipine and lisinopril-HCTZ at current doses, diet/exercise as discussed, will continue to monitor. Immunizations Name Administration Dates Next Due Influenza,high dose seasonal,trivalent,PF (Fluzone HD) 11/01/2018,10/07/2017 Influenza,seasonal,trivalent ,pres ervative (FLUZONE MDV) 10/24/2015,10/17/2014,10/13/2013,09/07/2012 PCV-13 10/24/2015 PPV23 (Pneumovax) 11/07/2012 Tdap 10/30/2017 Family History Medical History Relation Name Comments Other Brother Opioid overdose : Brother Neuromuscular Disorder Father Parki nson's disease : Father Cancer (?Type) Maternal grandfather malmatt nanburke neoplasm : Maternal Grandfather Autoimmune dz Sister lupus erythema tosus : Sister Kidney Disorder Sister kidney disea se : Sister Relation Name Status Comments Brother Father Maternal grandfather Sister Social History Tobacco Use Types Packs/Day Years Used Date Smoking Tobacco: Never Assessed Comments:Smoking Status:No c urrent tobacco use Sex and Gender Information Value Date Recorded Sex Assigned at Not on file Legal Sex Male 1:17 PM EDT Gender Identity Not on file Sexual Orientation Not on file Last Filed Vital Signs Vital Sign Reading Time Taken Comments Blood Pressure 112/70 11/01/2018 2:06 PM EST Pulse 72 11/01/2018 2:06 PM EST Temperature 36.8 ??C (98.3 ??F) 06/17/2018 3:44 PM ED T Respiratory Rate 16 11/01/2018 2:06 PM EST Oxygen Saturation 98% 11/01/2018 2:06 PM EST Inhaled Oxygen Concentration - - Weight 82.1 kg (181 lb) 11/01/2018 2:06 PM EST Height 177.8 cm (5' 10 ) 11/01/2018 2:06 PM EST Body Mass Index 25.97 11/01/2018 2:06 PM EST Plan of Treatment Health Maintenance Due Date Last Done Comments Hepatitis C Screening 1950 Zoster (Shingrix) (1 of 2) 2001 Colonoscopy 11/06/2016 11/06/2011, 11/06/2011 Pneumococcal 50+ years (3 of 3 - PCV20 or PCV21) 10/24/2020 10/24/2015, 11/07/2012 COVID-19 Vaccine (1 - 2023- season) 2024 Influenza (#1) 2024 11/01/2018, 09/23, 10/24/2015, Additional history exists RSV (1 - 1-dose 75+ series) 2026 DTaP/Tdap/Td (2 - Td or Tdap) 10/30/2027 10/30/2017 Abdominal Aorta Imaging Discontinued 12/14/2017 HPV Vaccine Aged Out No longer eligi ble based on patient's age to complete this topic Hep A Aged Out No longer eligi ble based on patient's age to complete this topic Hep B Aged Out No longer eligi ble based on patient's age to complete this topic Hib Aged Out No longer eligi ble based on patient's age to complete this topic Meningococcal ACWY Aged Out No longer eligible based on patient's age to complete this topic Zoster (Zostavax) Discontinued Procedures Procedure Name Priority Date/Time Associated Diagnosis Comments US ABDOMEN COMPLETE Routine 12/14/2017 4 :24 PM EST COLONOSCOPY Routine 11/06/2011 9:01 AM EST from Last 3 Months or Most Recently Relevant to Health Maintenance Results * US ABDOMEN COMPLETE (12/14/2017 4:24 PM EST) IMAGING STUDY Exam: Ultrasound abdomen complete INDICATION: Abnormal liver function test The aorta shows no aneurysm. IVC appears patent. There are limited views of the pancreas. No free fluid. Liver: 15.5 cm. Mild coarse texture. Polyp measures 3.8 mm. There are gallstones within the gallbladder largest measuring 1.3 cm. No wall thickening or pericholecystic fluid. Right kidney: 11 cm. Upper pole simple cyst measures 3.7 x 3.2 cm. Mid pole simple cyst measures 2.5 x 2.1 cm. Normal cortical thickness without obstruction. Left kidney: 11.8 cm. Normal cortical thickness. No obstruction. Small lower pole cyst simple measures 1.3 x 0.9 cm. Spleen: 11.5 cm. IMPRESSION: Mild nonspecific coarse texture to the liver. There is cholelithiasis with no enlarged bile ducts visualized. Bilateral kidney cysts which appear simple Electronically signed by Cecil Jain MD [facility] Reported To: Destinee Forte PHCT CONVERSIONS Anatomical Region Laterality Modality Other 12/14/2017 4:24 PM EST us Destinee Forte [facility] Final Result * COLONOSCOPY (11/06/2011 9:01 AM EST) COLONOSCOPY, RESULT Diverticulosis PHCT CONVERSIONS DATE NEXT SCREEN VISIT 5 Years PHCT CONVERSIONS 11/06/2011 9:01 AM EST us Php Unknown Prov PROCEDURES Final Result PHCT CONVERSIONS from Last 3 Months or Most Recently Relevant to Health Maintenance Care Teams Sales Representative Public Utilities Relationship Specialty Start Date End Date Duane Dumas PCP - General 06/29/23
--- OUTSIDE RECORDS SUMMARY | 2024-12-30 15:07 | XMS_ITS | Encounter Summary ---
Author Organization [facility] Address [address] [place] [address] Care Team Providers Care Beer Cooler Name Role Phone Damien Canseco MD Primary Care Provider + [phone] Franklyn Royal MD Unavailable [phone] Roslyn Adler RN Unavailable [phone] Wagner Loza DO Unavailable +1-000-000- 0000 Clifton Canseco MD Primary Care Provider [phone] Sadie Song MD Unavailable [phone] Encounter Details Date Type Department Care Team (Late st Contact Info) Description 08/03/2018 Scanned Document [facility] [address] [phone] Ana Silva MA 85 [facility] [address] [place] [address] Social History Tobacco Use Types Packs/Day Years [...] Info) Description 01/06/2025 9:00 AM EST Consult [facility] [address] [place] [phone] Franklyn Royal MD [address] [place] [address] documented as of this encounter Visit Diagnoses Not on filedocumented in this encounter Care Teams Beer Cooler Relationship Specialty Start Date End Date Damien Canseco MD PCP - General Internal Medicine 06/10/18 12/09/18 Clifton Canseco MD [address] [address] PCP - General Cardiovascular Disease 12/10/18 Franklyn Royal MD [address] [place] [address] Hepatology 07/27/18 Roslyn Adler, RN [address] [place] [address] Registered Nurse Hepatology 07/27/18 Wagner Loza DO [address] [place] [address] Nephrology 08/04/18 Sadie Song MD [address] [place] [address] Referring Provider 10/05/24 documented as of this encounter
--- OUTSIDE RECORDS SUMMARY | 2024-12-30 15:07 | XMS_ITS | Encounter Summary ---
Author Organization [facility] Address [address] [place] [address] Care Team Providers Care Fabric Inspector Name Role Phone Damien Canseco MD Primary Care Provider + [phone] Franklyn Royal MD Unavailable [phone] Roslyn Adler RN Unavailable [phone] Wagner Loza DO Unavailable +1-000-000- 0000 Clifton Canseco MD Primary Care Provider [phone] Sadie Song MD Unavailable [phone] Encounter Details Date Type Department Care Team (Late st Contact Info) Description 07/27/2018 Scanned Document [facility] [address] [phone] Roslyn Adler, RN [address] [address] Social History Tobacco Use Types Packs/Day Years [...] Info) Description 01/06/2025 9:00 AM EST Consult [facility] [address] [place] [phone] Franklyn Royal MD [address] [place] [address] documented as of this encounter Visit Diagnoses Not on filedocumented in this encounter Care Teams Fabric Inspector Relationship Specialty Start Date End Date Damien Canseco MD PCP - General Internal Medicine 06/10/18 12/09/18 Clifton Canseco MD [address] [address] PCP - General Cardiovascular Disease 12/10/18 Franklyn Royal MD [address] [place] [address] Hepatology 07/27/18 Roslyn Adler, VINITA [address] [place] [address] Registered Nurse Hepatology 07/27/18 Wagner Loza DO [address] [place] [address] Nephrology 08/04/18 Sadie Song MD [address] [place] [address] Referring Provider 10/05/24 documented as of this encounter
--- OUTSIDE RECORDS SUMMARY | 2024-12-30 15:07 | XMS_ITS | Clinical Summary ---
Author Organization [facility] Address [address] [place] [address] Care Team Providers Care Duty Engineer Name Role Phone Franklyn Royal MD Unavailable [phone] Roslyn Adler RN Unavailable [phone] Wagner Loza DO Unavailable +1-000-000- 0000 Clifton Canseco MD Primary Care Provider Sadie Song MD Unavailable [phone] Allergies No known active allergies Medications Medication Sig Dispensed Refills Start Date End Date Status amLODIPine (NORVASC) 5 MG tablet Take 5 mg by mouth daily. 0 09/08/2018 Active buPROPion (WELLBUTRIN SR) 150 MG 12 hr tablet Take by mouth 2 (two) times a day. Active lovastatin (MEVACOR) 10 MG tablet Take 10 mg by mouth daily. 1 10/05/2018 Active sildenafil (REVATIO) 20 MG tablet TAKE DIRECTED, 1 HR PRIOR TO NEED 0 10/18/2018 Active lisinopril-hydrochlorot hiazide (PRINZIDE,ZESTORETIC) 20-12.5 MG per tablet Take by mouth. 12/11/2017 Active aspirin enteric coated (ECOTRIN LOW STRENGTH) 81 MG EC tablet Take 81 mg by mouth daily. Active Active Problems Problem Noted Date Diagnosed Date Abnormal liver function 08/04/2018 Encounters Date Type Department Care Team Description 10/05/2024 Telephone [facility] 85 [facility] [address] [place] [address] GavinMargie noriega MA 10/03/2024 Transcribe Orders [facility] [address] [place] [address] Unknown Liver disease (Primary Dx) from Last 3 Months Immunizations Name Administration Dates Next Due Covid-19 MRNA Vaccine - Pfiz er 12+ (Purple Cap) 09/12/2021,03/02/2021,02/09/2021 Social History Tobacco Use Types Packs/Day Years Used Date Smoking Tobacco: Former Smokeless Tobacco: Never Alcohol Use Standard Drinks/Week [...] Sign Reading Time Taken Comments Blood Pressure 108/61 12/22/2018 10:10 AM EST Pulse 72 12/22/2018 10:10 AM EST Temperature 36.8 ??C (98.3 ??F) 12/22/2018 9:00 AM ES T Respiratory Rate 16 12/22/2018 10:10 AM EST Oxygen Saturation 95% 12/22/2018 10:10 AM EST Inhaled Oxygen Concentration - - Weight 79.4 kg (175 lb) 12/17/2018 2:12 PM EST Height 177.8 cm (5' 10 ) 12/17/2018 2:12 PM EST Body Mass Index 25.11 12/17/2018 2:12 PM EST Plan of Treatment Upcoming Encounters Date Type Department Care Team (Late st Contact Info) Description 01/06/2025 9:00 AM EST Consult [facility] 85 [facility] [address] [place] [address] Franklyn Royal MD [address] [phone] Health Maintenance Due Date Last Done Comments Hepatitis C Virus Screening 1950 DTaP/Tdap/Td Vaccines (1 - Tdap) 1970 Pneumococcal Vaccines 50+ (1 of 1 - PCV) 2001 Zoster (Shingles) Vaccine (1 of 2) 2001 Influenza Vaccine 06/23/2024 08/12/2021, , 10/24/2015, Additional history exists COVID-19 Vaccine ( - season) 2024 09/12/2021, 03/02/2021, 02/09/2021 RSV Vaccine 60 years and older and Patients (1 - 1-dose 75+ series) 2026 Colonoscopy 12/22/2028 12/22/2018 Hepatitis B Vaccines Aged Out No long er eligible based on patient's age to complete this topic Insurance Payer Benefit Plan / Group Subscriber ID Effective Dates Phone Address Type MISC TPL (AUTO/LIABIL ITY) MISC TPL (AUTO/LIABIL ITY) [id number] 2018-Pre sent [address] [place] [address] Workers Compensation MEDICARE MEDICARE PART A & B [id number] 2016-Pres ent [address] [place] [address] [address] [facility] [id number] 2018-Pres ent [address] [place] [address] [id number] 2020-12/30 [address] [place] [address] A[employer] MGD MEDICARE AETNA MGD MEDICARE [id number] 2023-Pres ent [address] [place] [address] Care Teams Duty Engineer Relationship Specialty Start Date End Date Clifton Canseco MD 1389 [facility] [address] [place] [address] PCP - General Cardiovascular Disease 12/10/18 Franklyn Royal MD [address] [address] Hepatology 07/27/18 Roslyn Adler, RN [address] [address] Registered Nurse Hepatology 07/27/18 Wagner Loza DO [address] [address] Nephrology 08/04/18 Sadie Song MD [address] [place] [address] Referring Provider 10/05/24
--- OUTSIDE RECORDS SUMMARY | 2024-12-30 15:07 | XMS_ITS | Clinical Summary ---
Author Organization [facility] it Address [address] [place] [address] Care Team Providers Care Paraprofessional Aide Name Role Phone Roslyn Monk NP Primary Care Provider Unavailabl e Immunizations Name Administration Dates Next Due Pfizer SARS-CoV-2 COVID-19, mRNA, LNP-S, preservative free 09/12/2021,03/02/2021,02/09/2021 Medical History Medical History Date Comments Hypertension DX:Hypertension High cholesterol DX:High cholest aram Social History Tobacco Use Types Packs/Day Years Used Date Smoking Tobacco: Never Smokeless Tobacco: Never Alcohol Use Standard Drinks/Week Comments Not Currently 0 (1 standard drink = 0.6 oz pur e alcohol) Sex and Gender Information Value Date Recorded Sex Assigned at Not on file Gender Identity Not on file Sexual Orientation Not on file Obstetrics History Plan of Treatment Health Maintenance Due Date Last Done Comments DTaP,Tdap,and Td Vaccines (1 - Tdap) 1970 Zoster Vaccines (1 of 2) 2001 Pneumococcal Vaccine: 65+ Years (1 of 1 - PCV) 2016 Abdominal Aortic Aneurysm (AAA) Screen 10/26/2022 Cholesterol Screening (Lipid Panel) 10/26/2022 Colorectal Cancer Screening: Colonoscopy 10/26/2022 Depression Screening 10/26/2022 Falls Risk Assessment 10/26/2022 Hepatitis C Screening 10/26/2022 Social Influencers of Health Screening 10/26/2022 COVID-19 Vaccine (4 - 2023-2 5 season) 2024 09/12/2021, 03/02/2021, 02/09/2021 Influenza Vaccine (#1) 2024 RSV Immunization Patients 60 + Years Old (1 - 1-dose 75+ series) 2026 HIB Vaccines Aged Out No longer eligi ble based on patient's age to complete this topic HPV Vaccines Aged Out No longer eligi ble based on patient's age to complete this topic Hepatitis A Vaccines Aged Out No long er eligible based on patient's age to complete this topic Hepatitis B Vaccines Aged Out No long er eligible based on patient's age to complete this topic IPV Vaccines Aged Out No longer eligi ble based on patient's age to complete this topic MMR Vaccines Aged Out No longer eligi ble based on patient's age to complete this topic Meningococcal ACWY Vaccine Aged Out N o longer eligible based on patient's age to complete this topic RSV Immunization Patients Under 20 months Aged Out No longer eligible b ased on patient's age to complete this topic Varicella Vaccines Aged Out No longer eligible based on patient's age to complete this topic Advance Directives Documents on File Type Date Recorded 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
--- OUTSIDE RECORDS SUMMARY | 2024-12-30 15:07 | XMS_ITS | Encounter Summary ---
Author Organization [facility] Address [address] [place] [address] Care Team Providers Care Jacquard Loom Fixer Name Role Phone Franklyn Royal MD Unavailable [phone] Roslyn Adler RN Unavailable [phone] Wagner Loza DO Unavailable +1-000-000- 0000 Clifton Canseco MD Primary Care Provider [phone] Sadie Song MD Unavailable [phone] Reason for Visit * Reason Comments Medication Refill Encounter Details Date Type Department Care Team ([facility] Contact Info) Description 09/04/2023 Refill [facility] Department of Urology [address] [place] [address] Anton Schafer MD [address] [place] [address] Social History Tobacco Use Types Packs/Day Years [...] Info) Description 01/06/2025 9:00 AM EST Consult [facility] [address] [place] [phone] Franklyn Royal MD [address] [place] [address] documented as of this encounter Visit Diagnoses Not on filedocumented in this encounter Care Teams Jacquard Loom Fixer Relationship Specialty Start Date End Date Clifton Canseco MD [address] [address] PCP - General Cardiovascular Disease 12/10/18 Franklyn Royal MD [address] [place] [address] Hepatology 07/27/18 Roslyn Adler RN [address] [place] [address] Registered Nurse Hepatology 07/27/18 Wagner Loza DO [address] [place] [address] Nephrology 08/04/18 Sadie Song MD [address] [place] [address] Referring Provider 10/05/24 documented as of this encounter
--- OUTSIDE RECORDS SUMMARY | 2024-12-30 15:07 | XMS_ITS | Clinical Summary ---
Author Organization [facility] Address [address] [place] [address] Care Team Providers Care Test Preparation Tutor Name Role Phone Roslyn Monk APRN Primary Care Provider [phone] Allergies No known active allergies Medications Medication Sig Dispensed Refills Start Date End Date Status amLODIPine (NORVASC) tablet 5 mg Take 5 mg by mouth daily. 0 09/08/2018 Active aspirin 81 MG EC tablet Take 81 mg by mouth. 0 Active buPROPion (WELLBUTRIN SR) 150 MG 12 hr tablet Take by mouth. 0 Active doxazosin (CARDURA) tablet 1 mg 0 02/05/2020 Active lisinopril-hydroCHLOROt hiazide (PRINZIDE,ZESTORETIC) tablet 20-12.5 mg Take by mouth. 0 12/11/2017 Act valerie sildenafil (REVATIO) 20 MG tablet 0 10/18/2018 Active lovastatin (MEVACOR) 10 MG tablet Take 10 mg by mouth. 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 20 Abnormal liver function 08/04/2018 Social History Tobacco Use Types Packs/Day Years Used Date Smoking Tobacco: Never Smokeless Tobacco: Never Alcohol Use Standard Drinks/Week Comments Not Currently 0 (1 standard drink = 0.6 oz pur e alcohol) Sex and Gender Information Value Date Recorded Sex Assigned at Male 06/10/2021 1:10 PM EDT Gender Identity Male 06/10/2021 1:10 PM EDT Sexual Orientation Not on file Job Start Date Occupation Industry Not on file Not on file Not on file Last Filed Vital Signs Vital Sign Reading Time Taken Comments Blood Pressure 151/99 07/26/2022 4:25 PM EDT Pulse 82 07/26/2022 4:25 PM EDT Temperature 36.4 ??C (97.5 ??F) 07/26/2022 4:25 PM ED T Respiratory Rate 16 07/26/2022 4:25 PM EDT Oxygen Saturation 96% 07/26/2022 4:25 PM EDT Inhaled Oxygen Concentration - - Weight 74.8 kg (165 lb) 07/26/2022 4:25 PM EDT Height 177.8 cm (5' 10 ) 07/26/2022 4:25 PM EDT Body Mass Index 23.68 07/26/2022 4:25 PM EDT Plan of Treatment Health Maintenance Due Date Last Done Comments Hepatitis C Screening 1950 Depression Screening 1963 Preventative Health Evaluation 1969 DTap / Tdap / Td (1 - Tdap) 1970 Colon Cancer Screening (Colonoscopy) 1996 Shingrix-Zoster Vaccine (1 o f 2) 2001 Fall Risk Assessment 2016 Pneumococcal Vaccine (1 of 1 - PCV) 2016 COVID-19 Vaccine (4 - 2023-2 5 season) 2024 09/12/2021, 03/02/2021, 02/09/2021 Influenza Vaccine (#1) 2024 08/12/2021 RSV Adult > 60+ Yrs or (1 - 1-dose 75+ series) 2026 Hepatitis B Vaccines Aged Out No long er eligible based on patient's age to complete this topic RSV Ped < 20 months Aged Out No longe r eligible based on patient's age to complete this topic Advance Directives For more information, please contact: [phone] Documents on File Type Date Recorded Patient Sterile Supervisor Expl anation Advance Directive and Living Will 07/12/2021 2:29 PM appt of health careers adviser Care Teams Test Preparation Tutor Relationship Specialty Start Date End Date Roslyn Monk APRN [address] [place] [address] [address] [facility] [place] [address] PCP - General Family Medicine 07/26/22
--- OUTSIDE RECORDS SUMMARY | 2024-12-30 15:07 | XMS_ITS | Encounter Summary ---
Author Organization [facility] Address [address] [place] [address] Care Team Providers Care Shield Installer Name Role Phone Franklyn Royal MD Unavailable [phone] Roslyn Adler RN Unavailable [phone] Wagner Loza DO Unavailable +1-000-000- [phone] Clifton Canseco MD Primary Care Provider [phone] Sadie Song MD Unavailable [phone] Encounter Details Date Type Department Care Team (Late st Contact Info) Description 10/05/2024 Telephone [facility] [address] [address] Margie Gavin MA [address] [phone] Social History Tobacco Use Types Packs/Day Years [...] on file documented as of this encounter Miscellaneous Notes * Telephone Encounter - Margie Gavin MA - 10/31/2024 11:20 AM EST Resent cover sheet requesting records * Telephone Encounter - Margie Gavin MA - 10/18/2024 9:41 AM EST Resent cover sheet requesting records * Telephone Encounter - Margie Gavin MA - 10/13/2024 3:16 PM EST Patient has been scheduled for 01/[address] royal * Telephone Encounter - Margie Gavin MA - 10/11/2024 3:11 PM EST Called patient. Left message to call us back. 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 Send request to obtain labs * Telephone Encounter - Lorri Javed APRN - 10/05/2024 11:26 AM EST Records reviewed. Referred for liver disease. Noted to have elevated AST/ALT. Per notes, additionalblood work ordered by referring provider. Can you call referring provider to request those results?Thanks * Telephone Encounter - Margie Gavin MA - 10/05/2024 11:13 AM EST New patient records received. Transcribe order completed. Care Team added. Records are available inEpic. please advise documented in this encounter Plan of Treatment Upcoming Encounters Date Type Department Care Team (Late st Contact Info) Description 01/06/2025 9:00 AM EST Consult [facility] [address] [address] Franklyn Royal MD [address] [place] [address] documented as of this encounter Visit Diagnoses Not on filedocumented in this encounter Care Teams Shield Installer Relationship Specialty Start Date End Date Clifton Canseco MD [address] [address] PCP - General Cardiovascular Disease 12/10/18 Franklyn Royal MD [address] [place] [address] Hepatology 07/27/18 Roslyn Adler RN [address] [place] [address] Registered Nurse Hepatology 07/27/18 Wagner Loza DO [address] [place] [address] Nephrology 08/04/18 Sadie Song MD [address] [place] [address] Referring Provider 10/05/24 documented as of this encounter
--- OUTSIDE RECORDS SUMMARY | 2024-12-30 15:07 | XMS_ITS | Clinical Summary ---
Author Organization [facility] Address [address] [place] [address] Care Team Providers Care Felt Coverer Name Role Phone Sherita Bueno Primary Care Provider [phone] Allergies No known active allergies Medications buPROPion SR (WELLBUTRIN SR) 150 mg 12 hr tablet Take by mouth 2 times daily. Active lisinopriL-hydro chlorothiazide (PRINZIDE) 20-12.5 mg per tablet Take by mouth. 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 Family History Relation Status Comments Father Mother Alive Social History Tobacco Use Types Packs/Day Years Used Date Smoking Tobacco: Never Assessed Sex and Gender Information Value Date Recorded Sex Assigned at Not on file Legal Sex Male 10:14 AM EST Gender Identity Not on file Sexual Orientation Not on file Last Filed Vital Signs Vital Sign Reading Time Taken Comments Blood Pressure 132/91 02/23/2020 1:09 PM EDT Pulse 76 02/23/2020 1:09 PM EDT Temperature - - Respiratory Rate - - Oxygen Saturation - - Inhaled Oxygen Concentration - - Weight 79.4 kg (175 lb) 02/23/2020 1:09 PM EDT Height 175.3 cm (5' 9 ) 02/23/2020 1:09 PM EDT Body Mass Index 25.84 02/23/2020 1:09 PM EDT Plan of Treatment Health Maintenance Due Date Last Done Comments CT Colonography 1951 Colonoscopy 1950 Colorectal Cancer Screening 1950 FIT-DNA (Cologuard) 1951 FIT 1951 FOBT 1950 Flex Sigmoidoscopy - 5y 1951 HIV Screening 1951 DTaP,Tdap,and Td Vaccines (1 - Tdap) 1969 Zoster Vaccines (1 of 2) 2001 Pneumococcal Vaccine, 65+ Ye ars (1 of 1 - PCV) 2016 COVID-19 Vaccine (1 - 2023-2 5 season) 2024 Influenza Vaccine (#1) 2024 HPV Vaccines Aged Out No longer eligi ble based on patient's age to complete this topic Hepatitis A Vaccines Aged Out No long er eligible based on patient's age to complete this topic Meningococcal Vaccine Aged Out No jagdish ney eligible based on patient's age to complete this topic Insurance EMPLOYEE HE[employer] Care Teams Felt Coverer Relationship Specialty Start Date End Date Sherita Bueno DO [address] [place] [phone] (Work) PCP - General Internal Medicine 02/22/20
[2024-12-30 17:23] LABS: Alanine Aminotransferase 50 U/L (0-40); Albumin Level 4.1 g/dL (3.5-5.0); Alkaline Phosphatase 58 U/L (39-117); Anion Gap 12 (12-20); Aspartate Amino Transferase 51 U/L (5-37); Bilirubin Total 0.4 mg/dL (0.0-1.0); Blood Urea Nitrogen 24 mg/dL (9-16); Calcium 9.4 mg/dL (8.4-10.2); Carbon Dioxide 29 mmol/L (22-29); Chloride 105 mmol/L (96-108); Estimated Glomerular Filt Rate 56; Glucose Random 90 mg/dL (60-115); Potassium 3.7 mmol/L (3.3-5.1); Sodium 142 mmol/L (135-145); Total Protein 7.3 g/dL (6.5-8.0)
[2024-12-31 08:31] LABS: HBc Num1 0.16 S/CO (0.00-0.79); HBsAGNum1 0.44 S/CO (0.00-0.99); Hepatitis B Core Antibody Nonreactive (Nonreactive); Hepatitis B Surface Antigen Negative (Negative); ~HepC Num1 0.08 S/CO (0.00-0.79); ~Hepatitis B Surface Antibody NONREACTIVE (Nonreactive); ~Hepatitis C Antibody Nonreactive (Nonreactive)
[2025-01-04 11:58] LABS: Anti Nuclear Antibody Screen NEGATIVE (NEGATIVE)
[2025-01-06 02:38] LABS: Testosterone, Free 68.7 pg/mL (30.0-135.0); Testosterone, Total 446 ng/dL (250-1100)
== END 2024-12-30 15:04 | disposition home or self-care (01) ==
LOC: HO.HMGCLDS 15:03
PROVIDERS: PCP Internal Medicine; Referring Provider Nurse Practitioner Family; Visit Provider Internal Medicine
DX: Z00.00 Encounter for general adult medical examination without abnormal findings (principal); I12.9 Hypertensive chronic kidney disease with stage 1 through stage 4 chronic kidney disease, or unspecified chronic kidney disease; E11.69 Type 2 diabetes mellitus with other specified complication; N18.30 Chronic kidney disease, stage 3 unspecified; R79.89 Other specified abnormal findings of blood chemistry; N52.1 Erectile dysfunction due to diseases classified elsewhere; Z11.59 Encounter for screening for other viral diseases; Z72.89 Other problems related to lifestyle
CPT/HCPCS: 36415; 80053; 84402; 84403; 86038; 86704; 86706; 86803; 87340

== ENCOUNTER 2025-02-23 09:13 | Outpatient (AMB) | payer MEDICARE, SELFPAY ==
--- NOTE | 2025-02-23 09:27 | MHC.OFFVIS ---
Intake Visit Reasons: 3M Testo Free total Intake Note: Patient is present for 3M TESTO Urology Medication:TADALAFIL Antibiotic Allergy:NONE Blood Thinner:NONE Frameman Required: No Allergies No Known Allergies Allergy (Verified 02/23/25 09:27) HPI Comments Details: Benny is a pleasant male. He is a patient of Dr. Song. He is seen for the following urologic conditions - erectile dysfunction - bladder outlet obstruction Discussion today regarding options including penile injection, vacuum pump, penile prosthetic Noted daily tadalafil has been very helpful for bladder control T 01/17 446 FT 68 PFSH Medical History Annual physical exam Surgical History S/P tonsillectomy Family History Brother No problems noted. 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 30 yr in [place], Housing: House Alcohol intake: current Patient Tobacco Use Status: Former Tobacco user e-Cigarette/Vaping Use: Currently Using service: No Current occupational status: unemployed and retired Cognitive needs: No Hearing needs: No Vision needs: Yes Review of Systems Const Denies chills and Denies fever(s) Card Reports no additional complaints and Denies syncope Resp Denies cough GI Denies abdominal pain and Denies heartburn Reports as per HPI and Denies change in libido Neuro Denies syncope Psych Denies change in libido Endo Denies change in libido Physical Exam Const General: cooperative, healthy appearing, comfortable and no acute distress Orientation/consciousness: patient oriented x3 HEENT Face and sinus: Yes normal facial exam Mouth: moist mucous membranes Neck Neck: Yes normal visual inspection, Yes full ROM and Yes trachea midline Chest Chest palpation & inspection: normal inspection of the chest Resp Effort & Inspection: normal respiratory effort, able to speak in complete sentences and no respiratory distress GI Inspection: Yes normal to inspection Back/Spine/Pelvis Cervical Spine: normal cervical lordosis Thoracic/Lumbar Spine: thoracic and lumbar spine normal to inspection Skin General skin exam: no rashes or lesions noted Neuro General: patient oriented x3, gait normal, tone normal and moves all extremities Extrem General: Yes normal to inspection and Yes capillary refill normal Assessment & Plan Assessment & Plan (1) Nocturia: Code(s): R35.1 - Nocturia Category: Medical (2) Bladder outlet obstruction: Code(s): N32.0 - Bladder-neck obstruction Category: Medical Plan Six-month follow-up Medications: Changed From tadalafil (Cialis) [facility] DR33 [id number] 5 mg PO DAILY 90 days 90 tabs 0RF N32.0 - Bladder-neck obstruction, R35.1 - Nocturia To tadalafil (Cialis) 5 mg PO DAILY 90 days 90 tabs 1RF N32.0 - Bladder-neck obstruction, R35.1 - Nocturia Patient Instructions: This note is constructed using voice recognition software. While every effort has been made to ensure accuracy copper miner blasting errors may have been included. Imaging studies, laboratory and physical exam results were discussed and reviewed in detail. No major barriers to patient understanding were identified. An opportunity to ask questions regarding the treatment plan was provided. All questions were answered. The patient expressed understanding and agreement with the above treatment plan. The patient is aware they should contact our office by phone for worsening of their current condition or the appearance of new urologic symptoms. Compliance is encouraged with any medications and followup testing that is ordered. It is a privilege to participate in the urologic care of your patient. If you have any questions or concerns regarding treatment for the above conditions, or other urologic issues, please do not hesitate to contact me. The office telephone contact is [phone]. Sincerely, Dr Ramon Leavitt MD, KAYL[facility] - Urology Compassionate Specialist Care for the Genitourinary System Coding Level of Care Code Est Pt Level 4 (02382) Diagnoses Nocturia R35.1 Bladder outlet obstruction N32.0
--- OUTSIDE RECORDS SUMMARY | 2025-02-23 09:32 | XMS_ITS | Clinical Summary ---
Author Organization [facility] Address [address] [place] [address] Care Team Providers Care Cell Efficiency Supervisor Name Role Phone Aleshia Roslyn DANIELLE Primary Care Provider Unavailabl e Immunizations Name [...] at Not on file Legal Sex Male 3:02 AM EST Gender Identity Not on file Sexual Orientation Not on file Obstetrics History Plan of Treatment Health Maintenance Due Date Last Done Comments DTaP,Tdap,and Td Vaccines (1 - Tdap) 1970 Pneumococcal Vaccine: 50+ Years (1 of 1 - PCV) 2001 Zoster Vaccines (1 of 2) 2001 Abdominal Aortic Aneurysm (AAA) Screen 10/26/2022 Cholesterol Screening (Lipid Panel) 10/26/2022 Colorectal Cancer Screening: Colonoscopy 10/26/2022 Depression Screening 10/26/2022 Falls Risk Assessment 10/26/2022 Hepatitis C Screening 10/26/2022 Social Influencers of Health Screening 10/26/2022 COVID-19 Vaccine (4 - 2023-2 5 season) 2024 09/12/2021, 03/02/2021, 02/09/2021 Influenza Vaccine (Season Ended) 2025 RSV Immunization Adult Patients (1 - 1-dose 75+ series) 2026 HIB [...] patient's age to complete this topic Meningococcal B Vacine Aged Out No lo nger eligible based on patient's age to complete this topic RSV Immunization Patients Under 20 months Aged Out No longer eligible b ased on patient's age to complete this topic Varicella Vaccines Aged Out No longer eligible based on patient's age to complete this topic Advance Directives Documents on File Type Date Recorded Patient Building Contractor Expl anation Health Care Decision (hx) 07/12/2021 DARRIN PAIZ DIRECTIVE Care Teams Cell Efficiency Supervisor Relationship Specialty Start Date End Date Roslyn Monk NP PCP - General Family Medicine 07/26/22
--- OUTSIDE RECORDS SUMMARY | 2025-02-23 09:32 | XMS_ITS | Encounter Summary ---
Author Organization [facility] Address [address] [place] [address] Care Team Providers Care Fermenter Name Role Phone Damien Canseco MD Primary Care Provider [phone] Franklyn Royal MD Unavailable [phone] Roslyn Adler RN Unavailable [phone] Wagner Loza DO Unavailable +1-000-000- 0000 Clifton Canseco MD Primary Care Provider [phone] Sadie Song MD Unavailable [phone] Encounter Details Date Type Department Care Team (Late st Contact Info) Description 08/03/2018 Scanned Document [facility] [address] [place] [phone] Ana Silva MA [address] [place] [address] Social History Tobacco Use Types Packs/Day Years [...] Value Date Recorded Sex Assigned at Male 01/04/2025 8:41 AM EST Gender Identity Male 01/04/2025 8:41 AM EST Sexual Orientation Heterosexual (straight) 01/04 8:41 AM EST documented as of this encounter Plan of Treatment Not on file documented as of this encounter Visit Diagnoses Not on filedocumented in this encounter Care Teams Fermenter Relationship Specialty Start Date End Date Damien Canseco MD PCP - General Internal Medicine 06/10/18 12/09/18 Clifton Canseco MD [address] [address] PCP - General Cardiovascular Disease 12/10/18 Franklyn Royal MD [address] [address] Hepatology 07/27/18 Roslyn Adler RN [address] [address] Registered Nurse Hepatology 07/27/18 Wagner Loza DO [address] [address] Nephrology 08/04/18 Sadie Song MD [address] [place] [address] Referring Provider 10/05/24 documented as of this encounter
--- OUTSIDE RECORDS SUMMARY | 2025-02-23 09:32 | XMS_ITS | Encounter Summary ---
Author Organization [facility] Address [address] [place] [address] Care Team Providers Care Publication Distributor Name Role Phone Franklyn Royal MD Unavailable [phone] Roslyn Adler RN Unavailable [phone] Wagner Loza DO Unavailable +1-000-000- 0000 Clifton Canseco MD Primary Care Provider [phone] Sadie Song MD Unavailable Encounter Details Date Type Department Care Team (Late st Contact Info) Description 10/05/2024 Telephone [facility] [address] [place] [phone] Margie Gavin MA [address] [place] [phone] Social History Tobacco Use Types Packs/Day Years [...] AM EST documented as of this encounter Miscellaneous Notes [...] to call us back. 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 Send request to obtain labs * Telephone [...] documented in this encounter Plan of Treatment Not on file documented as of this encounter Visit Diagnoses Not on filedocumented in this encounter Care Teams Publication Distributor Relationship Specialty Start Date End Date Clifton Canseco MD [address] [address] PCP - General Cardiovascular Disease 12/10/18 Franklyn Royal MD [address] [address] Hepatology 07/27/18 Roslyn Adler RN [address] [address] Registered Nurse Hepatology 07/27/18 Wagner Loza DO [address] [address] Nephrology 08/04/18 Sadie Song MD [address] [place] [address] Referring Provider 10/05/24 documented as of this encounter
--- OUTSIDE RECORDS SUMMARY | 2025-02-23 09:32 | XMS_ITS | Encounter Summary ---
Author Organization [facility] Address [address] [place] [address] Care Team Providers Care Director Dance Name Role Phone Damien Canseco MD Primary Care Provider [phone] Franklyn Royal MD Unavailable [phone] Roslyn Adler RN Unavailable [phone] Wagner Loza DO Unavailable [phone]- [phone] Clifton Canseco MD Primary Care Provider [phone] Sadie Song MD Unavailable [phone] Encounter Details Date Type Department Care Team (Late st Contact Info) Description 07/27/2018 Scanned Document [facility] [address] [address] Roslyn Adler, RN [address] [address] Social History Tobacco Use Types Packs/Day Years [...] on filedocumented in this encounter Care Teams Director Dance Relationship Specialty Start Date End Date Damien Canseco MD PCP - General Internal Medicine 06/10/18 12/09/18 Clifton Canseco MD [address] [address] PCP - General Cardiovascular Disease 12/10/18 Franklyn Royal MD [address] [address] Hepatology 07/27/18 Roslyn Adler, RN [address] [address] Registered Nurse Hepatology 07/27/18 Wagner Loza DO [address] [place] [address] Nephrology 08/04/18 Sadie Song MD [address] [place] [address] Referring Provider 10/05/24 documented as of this encounter
--- OUTSIDE RECORDS SUMMARY | 2025-02-23 09:32 | XMS_ITS | Clinical Summary ---
Author Organization [facility] Address [address] [place] [address] Care Team Providers Care Motor Driver Name Role Phone Duane Dumas Primary Care [...] of balance 11/01/2018 Overview (12/27/2023): Impression - [id number]: - mild, importance of maintaining good balanced discussed, dalia as pt's age, pt agrees, referred to PT for further eval/tx, will continue to monitor. Elevated serum creatinine 06/25/2018 Overview (12/27/2023): Impression - [id number]: - new finding for pt, may be r/t NSAID use and pt has stopped this, repeat BMP pending and urine labs pending for further eval, will contact pt with results, pt to continue to stay well-hydrated, will continue to monitor. Elevated liver enzymes 12/14/2017 Overview (12/27/2023): Impression - [id number]: - no s/s, pt has f/u appt with GI shortly, will continue to monitor. Impression - [id number]: - no s/s and no need to [...] monitor. Hyperlipidemia 12/11/2017 Overview (12/27/2023): Impression - [id number]: - fasting lipids pending, pt to continue lovastatin at current dose, diet/exercise as discussed, will contact pt with results and adjust tx if indicated, will continue to monitor. Impression - 68Xoh5570: - fasting lipids pending, pt to continue [...] discussed, will continue to monitor. Impression - [id number]: - chronic and stable, pt to continue [...] by Cecil Jain MD [facility] Reported To: Destinee Forte PHCT CONVERSIONS Anatomical Region Laterality Modality Other 12/14/2017 4:24 PM EST us Destinee Forte [facility] Final Result * COLONOSCOPY (11/06/2011 9:01 AM EST) COLONOSCOPY, RESULT Diverticulosis PHCT CONVERSIONS DATE NEXT SCREEN VISIT 5 Years PHCT CONVERSIONS 11/06/2011 9:01 AM EST us Php Unknown Prov PROCEDURES Final Result PHCT CONVERSIONS from Last 3 Months or Most Recently Relevant to Health Maintenance Care Teams Motor Driver Relationship Specialty Start Date End Date Duane Dumas PCP - General 06/29/23
--- OUTSIDE RECORDS SUMMARY | 2025-02-23 09:32 | XMS_ITS | Encounter Summary ---
Author Organization [facility] Address [address] [place] [address] Care Team Providers Care Bottle Label Inspector Name Role Phone Franklyn Royal MD Unavailable [phone] Roslyn Adler RN Unavailable [phone] Wagner Loza DO Unavailable +1-000-000- 0000 Clifton Canseco MD Primary Care Provider [phone] Sadie Song MD Unavailable [phone] Encounter Details Date Type Department Care Team (Late st Contact Info) Description 02/21/2025 Telephone [facility] [address] [place] [phone] Margie Gavin MA [address] [place] [address] Social History Tobacco Use Types Packs/Day Years [...] encounter Miscellaneous Notes * Telephone Encounter - Roslyn Adler RN - 02/22/2025 2:53 PM EDT Insurance did not cover pt's recent lab tests. Please provide different diagnosis code and will call [facility] to have them resubmit to insurance * Telephone Encounter - Margie Gavin MA - 02/21/2025 12:14 PM EDT Received a call from patient whom states that he received a bill from [facility] for a lab order that dr royal had him do documented in this encounter Plan of Treatment Not on file documented as of this encounter Visit Diagnoses Not on filedocumented in this encounter Care Teams Bottle Label Inspector Relationship Specialty Start Date End Date Clifton Canseco MD [address] [address] PCP - General Cardiovascular Disease 12/10/18 Franklyn Royal MD [address] [address] Hepatology 07/27/18 Roslyn Adler RN [address] [address] Registered Nurse Hepatology 07/27/18 Wagner Loza DO [address] [address] Nephrology 08/04/18 Sadie Song MD [address] [place] [address] Referring Provider 10/05/24 documented as of this encounter
--- OUTSIDE RECORDS SUMMARY | 2025-02-23 09:32 | XMS_ITS | Encounter Summary ---
Author Organization [facility] Address [address] [place] [address] Care Team Providers Care Director Geophysical Laboratory Name Role Phone Franklyn Royal MD Unavailable [phone] Roslyn Adler RN Unavailable [phone] Wagner Loza DO Unavailable +1-000-000- 0000 Clifton Canseco MD Primary Care Provider [phone] Sadie Song MD Unavailable [phone] Reason for Visit * Reason Comments Medication Refill Encounter Details Date Type Department Care Team ([facility] Contact Info) Description 09/04/2023 Refill [facility] Department of Urology [address] [place] [phone] Anton Schafer MD [address] [place] [address] Social History Tobacco Use Types Packs/Day Years [...] filedocumented in this encounter Care Teams Director Geophysical Laboratory Relationship Specialty Start Date End Date Clifton Canseco MD [address] [address] PCP - General Cardiovascular Disease 12/10/18 Franklyn Royal MD [address] [address] Hepatology 07/27/18 Roslyn Adler RN [address] [address] Registered Nurse Hepatology 07/27/18 Wagner Loza DO [address] [address] Nephrology 08/04/18 Sadie Song MD [address] [place] [address] Referring Provider 10/05/24 documented as of this encounter
--- OUTSIDE RECORDS SUMMARY | 2025-02-23 09:32 | XMS_ITS | Clinical Summary ---
Author Organization [facility] Address [address] [place] [address] Care Team Providers Care Loose Hand Packer Name Role Phone Franklyn Royal MD Unavailable [phone] Roslyn Adler RN Unavailable [phone] Wagner Loza DO Unavailable [phone] Clifton Canseco MD Primary Care Provider Sadie Song MD Unavailable [phone] Allergies No known active allergies Medications Medication Sig Dispensed Refills Start Date End Date Status amLODIPine (NORVASC) 5 MG tablet Take 5 mg by mouth daily. 0 09/08/2018 Active buPROPion (WELLBUTRIN SR) 150 MG 12 hr tablet Take by mouth 2 (two) times a day. Active lovastatin (MEVACOR) 10 MG tablet Take 10 mg by mouth daily. 1 10/05/2018 Active lisinopril-hydrochloro thiazide (PRINZIDE,ZESTORETIC) 20-12.5 MG per tablet Take by mouth. 12/11/2017 Active aspirin enteric coated (ECOTRIN LOW STRENGTH) 81 MG EC tablet Take 81 mg by mouth daily. Active tadalafil (CIALIS) 20 MG tablet TAKE 1 TABLET BY MOUTH ONCE NEEDED FOR SEXUAL ACTIVITY; TAKE 1 TABLET 1 HOUR PRIOR TO SEXUAL ACTIVITY; NOT TO EXCEED MORE THAN 3 TIMES PE 11/08/2024 Active doxazosin (CARDURA) 4 MG tablet Take 1.5 tablets (6 mg total) by mouth. Active valsartan-hydroCHLOROt hiazide (DIOVAN-HCT) 160-12.5 MG per tablet Take 1 tablet by mouth daily. 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 Depression 12/11/2017 Overview (01/06/2025): Impression - 11Dec2017: - chronic and stable, well-controlled, pt to continue bupropion at current dose, call if mood changes, and/or if pt develops SI/HI, will continue to monitor. Benign essential hypertension 12/11/2017 Overview (01/06/2025): Impression - 11Dec2017: - chronic and stable, pt to continue amlodipine and combine HCTZ and lisinopril into 1 combo med but at current doses, diet/exercise as discussed, will continue to monitor. Impression - [id number]: - chronic and stable, pt to continue amlodipine and lisinopril-HCTZ at current doses, diet/exercise as discussed, will continue to monitor. Encounters Date Type Department Care Team Description 02/21/2025 Telephone [facility] [address] [place] [phone] Margie Gavin MA 01/10/2025 Telephone [facility] [address] [phone] Safia Huang MA 01/06/2025 9:00 AM EST Consult [facility] [address] [address] Franklyn Royal MD Abnormal liver function (Primary Dx) 01/06/2025 Travel from Last 3 Months Immunizations Name Administration Dates Next Due Covid-19 MRNA Vaccine - Pfiz er 12+ (Purple Cap) 09/12/2021,03/02/2021,02/09/2021 Influenza High-Dose Quadriva lent,(FLUZONE HIGH-DOSE), Perservative Free IM 0.7 mL 65 years and older 08/12/2021 Pneumococcal Conjugate 13-Valent 10/24/2015 Pneumococcal Polysaccharide 23-Valent 11/07/2012 Tdap 10/30/2017 Social History Tobacco Use Types Packs/Day Years [...] Orientation Heterosexual (straight) 01/04 8:41 AM EST Last Filed Vital Signs Vital Sign Reading Time Taken Comments Blood Pressure 114/70 01/06/2025 9:18 AM EST Pulse 75 01/06/2025 9:18 AM EST Temperature 36.2 ??C (97.2 ??F) 01/06/2025 9:18 AM ES T Respiratory Rate 16 12/22/2018 10:10 AM EST Oxygen Saturation 99% 01/06/2025 9:18 AM EST Inhaled Oxygen Concentration - - Weight 79.2 kg (174 lb 9.7 oz) 01/06/2025 9:18 A M EST Height 177.8 cm (5' 10 ) 12/17/2018 2:12 PM EST Body Mass Index 25.05 12/17/2018 2:12 PM EST Plan of Treatment Health Maintenance Due Date Last Done Comments Hepatitis C Virus Screening 1950 Zoster (Shingles) Vaccine (1 of 2) 2001 Abdominal Aortic Aneurysm (AAA) Screening 2016 Pneumococcal Vaccines 50+ (3 of 3 - PCV20 or PCV21) 10/24/2020 10/24/2015, 11/07/2012 Influenza Vaccine 06/23/2024 09/26/2022, 08/12/2021, 11/01/2018 COVID-19 Vaccine (4 - 2023-2 5 season) 2024 09/12/2021, 03/02/2021, 02/09/2021 RSV Vaccine 60 years and older and Patients (1 - 1-dose 75+ series) 2026 DTaP/Tdap/Td Vaccines (2 - T d or Tdap) 10/30/2027 10/30/2017 Colonoscopy 12/22/2028 12/22/2018 Hepatitis B Vaccines Aged Out No long er eligible based on patient's age to complete this topic Procedures Procedure Name Priority Date/Time Associated Diagnosis Comments HEPATIC FUNCTION PANEL Routine 5 2:56 PM EST Abnormal liver function TISSUE TRANSGLUTAMINASE IGA AB Routine 01/12/2025 2:56 PM EST Abnormal liver function SOLUBLE LIVER ANTIGEN (SLA) AUTO-AB Routine 01/12/2025 2:56 PM EST Abnormal liver function MITOCHONDRIAL M2 ANTIBODY, IGG Routine 01/12/2025 2:56 PM EST Abnormal liver function ANTI-SMOOTH MUSCLE SCREEN, REFLEX TITER - ASMASC Routine 01/12/2025 2:56 PM EST Abnormal liver function ANTI-NUCLEAR ANTIBODY SCREEN, REFLEX TITER AND PATTERN Q249 Routine 01/12/2025 2:56 PM EST Abnormal liver function from Last 3 Months Results * Anti-Nuclear Antibody Screen, Reflex Titer and Pattern (01/12/2025 2:56 PM EST) TATYANA Screen, IFA NEGATIVE NEGATIVE [employer] Comment: TATYANA IFA is a first line screen for detecting the presence of up to approximately 150 autoantibodies in various autoimmune diseases. A negative TATYANA IFA result suggests an TATYANA-associated autoimmune disease is not present at this time, but is not definitive. If there is high clinical suspicion for Sjogren's syndrome, testing for anti-SS-A/Ro antibody should be considered. Anti-Erin-1 antibody should be considered for clinically suspected inflammatory myopathies. AC-0: Negative International Consensus on TATYANA Patterns (https://doi.org/10.1515/tyne-2505-5756) For additional information, please refer to http://education.Mimiboard/faq/MAT934 (This link is being provided for informational/ educational purposes only.) ?? Blood specimen / Unknown 01/12/2025 2:56 PM EST 01/12/2025 2:57 PM EST Franklyn Royal MD LAB BLOOD ORDERABLES Performing Organization Address [facility] Co de Phone Number [employer] [address] [address] * SOLUBLE LIVER ANTIGEN (SLA) AUTO-AB (01/12/2025 2:56 PM EST) Soluble Liver Antigen Auto Antibody <20.1 0.0 - 20.0 U [facility] Comment: ? Reference range(s): Negative: ??0.0 - 20.0 Equivocal: 20.1 - 24.9 Positive: ??>=25.0 Antibodies to soluble liver antigen (SLA) appear to be directed against the UGA-suppressor tRNA associated protein. These antibodies are highly specific for autoimmune hepatitis (AIH) and may, rarely, be the only autoantibodies detected in serum from such patients. Antibodies to SLA are most closely associated with AIH type 1; the presence of these antibodies in patients with cryptogenic hepatitis suggests that these patients may have AIH type 1. Anti-SLA antibodies may be detected in some patients with the primary biliary cirrhosis-AIH overlap syndrome, but not in healthy controls. Blood Blood specimen / Unknown 01/12/2025 2:56 PM EST 01/12/2025 2:57 PM EST Franklyn Royal MD LAB BLOOD ORDERABLES Performing Organization Address [facility]/ZIP Co de Phone Number [employer] [address] [place] * Anti-Smooth Muscle Screen, Reflex Titer (01/12/2025 2:56 PM EST) Anti-Smooth Muscle Screen NEGATIVE NEGATIVE [facility] Blood Blood specimen / Unknown 01/12/2025 2:56 PM EST 01/12/2025 2:57 PM EST Franklyn Royal MD LAB BLOOD ORDERABLES Performing Organization Address [facility] Co de Phone Number [employer] [address] [place] [phone] * MITOCHONDRIAL M2 ANTIBODY, IGG (01/12/2025 2:56 PM EST) Pathologist [facility] Mitochondrial M2 Ab, IgG <=20.0 <=20.0 U [facility] Comment: ? Reference Range: ?? Negative: ??<=20.0 ?U ?? Equivocal: 20.1 - 24.9 U ?? Positive: ??>=25.0 ?U Blood Blood specimen / Unknown 01/12/2025 2:56 PM EST 01/12/2025 2:57 PM EST Franklyn Royal MD LAB BLOOD ORDERABLES Performing Organization Address City/[facility] Co de Phone Number [facility] [address] [place] * TISSUE TRANSGLUTAMINASE IGA AB (01/12/2025 2:56 PM EST) Pathologist [facility] Tissue Transglutaminase IgA Ab <1.0 U/mL [facility] Comment: Value ?Interpretation ----- ? <15.0 ?Antibody not detected > or = 15.0 ?Antibody detected Blood Blood specimen / Unknown 01/12/2025 2:56 PM EST 01/12/2025 2:57 PM EST Franklyn Royal MD LAB BLOOD ORDERABLES Performing Organization Address [facility] de Phone Number [employer] [facility] [address] [place] [address] * (ABNORMAL) HEPATIC FUNCTION PANEL (01/12/2025 2:56 PM EST) Pathologist [facility] Protein, Total 7.0 6.1 - 8.1 g/dL [facility] Albumin 4.6 3.6 - 5.1 g/dL [facility] Globulin 2.4 1.9 - 3.7 g/dL (calc) [facility] Albumin/Globulin Ratio 1.9 1.0 - 2.5 (calc) [facility] Bilirubin, Total 0.7 0.2 - 1.2 mg/dL [facility] Bilirubin, Direct 0.2 < OR = 0.2 mg/dL [facility] Bilirubin, Indirect 0.5 0.2 - 1.2 mg/dL (calc) [facility] Alkaline Phosphatase 48 35 - 144 U/L [facility] Aspartate Aminotrans (AST) 42(H) 10 - 35 U/L [facility] Alanine Aminotrans (ALT) 38 9 - 46 U/L [facility] Blood Blood specimen / Unknown 01/12/2025 2:56 PM EST 01/12/2025 2:57 PM EST Franklyn Royal MD LAB BLOOD ORDERABLES Performing Organization Address [facility] de Phone Number [employer] [address] [place] [address] from Last 3 Months Care Teams Loose Hand Packer Relationship Specialty Start Date End Date Clifton Canseco MD [address] [address] PCP - General Cardiovascular Disease 12/10/18 Franklyn Royal MD [address] [place] [address] Hepatology 07/27/18 Roslyn Adler RN [address] [phone] Registered Nurse Hepatology 07/27/18 Wagner Loza DO [address] [place] [address] Nephrology 08/04/18 Sadie Song MD [address] [place] [address] Referring Provider 10/05/24
--- OUTSIDE RECORDS SUMMARY | 2025-02-23 09:32 | XMS_ITS | Encounter Summary ---
Author Organization [facility] Address [address] [place] [address] Care Team Providers Care Heater Helper Name Role Phone Damien Canseco MD Primary Care Provider [phone] Franklyn Royal MD Unavailable [phone] Roslyn Adler RN Unavailable [phone] Wagner Loza DO Unavailable [phone] Clifton Canseco MD Primary Care Provider [phone] Sadie Song MD Unavailable [phone] Encounter Details Date Type Department Care Team (Late st Contact Info) Description 08/03/2018 Scanned Document [facility] [address] [place] [phone] Ana Silva MA [address] [place] [phone] Social History Tobacco Use Types Packs/Day Years [...] on filedocumented in this encounter Care Teams Heater Helper Relationship Specialty Start Date End Date Damien Canseco MD PCP - General Internal Medicine 06/10/18 12/09/18 Clifton Canseco MD [address] [address] PCP - General Cardiovascular Disease 12/10/18 Franklyn Royal MD [address] [address] Hepatology 07/27/18 Roslyn Adler RN [address] [address] Registered Nurse Hepatology 07/27/18 Wagner Loza DO [address] [address] Nephrology 08/04/18 Sadie Song MD [address] [place] [phone] Referring Provider 10/05/24 documented as of this encounter
--- OUTSIDE RECORDS SUMMARY | 2025-02-23 09:32 | XMS_ITS | Clinical Summary ---
Author Organization [facility] Address [address] [place] [address] Care Team Providers Care Research Phlebotomist Name Role Phone Sherita Bueno Primary Care Provider [phone] Allergies No known active allergies Medications buPROPion [...] DTaP,Tdap,and Td Vaccines (1 - Tdap) 1969 Pneumococcal Vaccine, 50+ Ye ars (1 of 1 - PCV) 2001 Zoster Vaccines (1 of 2) 2001 COVID-19 Vaccine (1 - 2023-2 5 season) 2024 Influenza Vaccine (Season Ended) 2025 HPV Vaccines Aged Out No longer eligi ble based on patient's age to complete this topic Hepatitis A Vaccines Aged Out No long er eligible based on patient's age to complete this topic Meningococcal Vaccine Aged Out No jagdish ney eligible based on patient's age to complete this topic Insurance EMPLOYEE [employer] Care Teams Research Phlebotomist Relationship Specialty Start Date End Date Sherita Bueno DO [address] [place] [phone] (Work) PCP - General Internal Medicine 02/22/20
== END 2025-02-23 10:04 | disposition home or self-care (01) ==
LOC: HO.HUSH 09:14
PROVIDERS: PCP Internal Medicine; Visit Provider Urology
DX: R35.1 Nocturia (principal); N32.0 Bladder-neck obstruction
CPT/HCPCS: 99214

== ENCOUNTER → 2025-02-23 09:13 | Outpatient (BNVA) | payer MEDICARE, SELFPAY | PROVIDERS: PCP Internal Medicine; Visit Provider Urology | DX: R35.1 Nocturia (principal); N52.9 Male erectile dysfunction, unspecified; N32.0 Bladder-neck obstruction | CPT/HCPCS: 99212 ==

== ENCOUNTER 2025-08-23 11:04 | Outpatient (AMB) | payer MEDICARE, SELFPAY ==
--- NOTE | 2025-08-23 11:14 | A.OFFVIS_ITS ---
Intake Visit Reasons: 6m follow up Intake Note: Patient is present for 6M follow up Urology Medication:TADALAFIL Antibiotic Allergy:NONE Blood Thinner:NONE PVR:25 MLS Content Production Specialist Required: No Accompanied by: Self / Same As Patient Allergies No Known Allergies Allergy (Verified 08/23/25 11:14) HPI Comments Details: Benny is a pleasant male. He is a patient of Dr. Song. He is seen for the following urologic conditions - erectile dysfunction - bladder outlet obstruction Continue with daily tadalafil for bladder stabilization and erectile dysfunction Testosterone and adequate range Erectile dysfunction Good response to daily tadalafil Noted daily tadalafil has been very helpful for bladder control T 01/17 446 FT 68 Lower urinary tract symptoms Managed with tadalafil PSA 08/16 3.0 PFSH Medical History Annual physical exam Surgical History S/P tonsillectomy Family History Brother No problems noted. 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 in [place], Housing: House Alcohol intake: current Patient Tobacco Use Status: Former Tobacco user e-Cigarette/Vaping Use: Currently Using service: No Current occupational status: unemployed and retired Cognitive needs: No Hearing needs: No Vision needs: Yes Review of Systems Const Denies chills and Denies fever(s) Card Reports no additional complaints and Denies syncope Resp Denies cough GI Denies abdominal pain and Denies heartburn Reports as per HPI and Denies change in libido Neuro Denies syncope Psych Denies change in libido Endo Denies change in libido Physical Exam Const General: cooperative, healthy appearing, comfortable and no acute distress Orientation/consciousness: patient oriented x3 HEENT Face and sinus: Yes normal facial exam Mouth: moist mucous membranes Neck Neck: Yes normal visual inspection, Yes full ROM and Yes trachea midline Chest Chest palpation & inspection: normal inspection of the chest Resp Effort & Inspection: normal respiratory effort, able to speak in complete sentences and no respiratory distress GI Inspection: Yes normal to inspection Back/Spine/Pelvis Cervical Spine: normal cervical lordosis Thoracic/Lumbar Spine: thoracic and lumbar spine normal to inspection Skin General skin exam: no rashes or lesions noted Neuro General: patient oriented x3, gait normal, tone normal and moves all extremities Extrem General: Yes normal to inspection and Yes capillary refill normal Office Procedures Post Void Residual Post Residual Void Post Void Residual (PVR): 25 [id number] Void Residual by ultrasound Results AMB Urinalysis, Automated UA Leukoctes 0 Ahsan/uL Last Edit by Leanne Miller MA on 08/23/25 12:52 UA Nitrite Negative Last Edit by Leanne Miller, PR on 08/23/25 12:52 UA Urobilinogen 0.2 mg/dL Last Edit by Leanne Miller MA on 08/23/25 12:52 UA Protein 0 mg/dL Last Edit by Leanne Miller, PR on 08/23/25 12:52 UA pH 6.0 Last Edit by Leanne Miller, PR on 08/23/25 12:52 UA Blood 0 Wilman/uL Last Edit by Leanne Miller, PR on 08/23/25 12:52 UA Specific Holley 1.015 Last Edit by Leanne Miller PR on 08/23/25 12:52 UA Ketone Negative Last Edit by Leanne Miller PR on 08/23/25 12:52 UA Bilirubin 0 mg/dL Last Edit by Leanne Miller PR on 08/23/25 12:52 UA Glucose 0 mg/dL Last Edit by Leanne Miller PR on 08/23/25 12:52 Results Reviewed Results Reviewed: Laboratory Last Values Urine pH (Auto) 6.0 08/23/25 12: Specific Holley (Auto) 1.015 08/23/25 12:01 Urine Protein (Auto) 0 mg/dL 08/23/25 12:01 Glucose (UA)(Auto) 0 mg/dL 08/23/25 12:01 Urine Ketones (Auto) Negative 08/23/25 12: Urine Blood (Auto) 0 Wilman/uL 08/23/25 12:01 Urine Nitrite (Auto) Negative 08/23/25 12:01 Urine Bilirubin (Auto) 0 mg/dL 08/23/25 12:01 Urine Urobilinogen (Auto) 0.2 mg/dL 08/23/25 12:01 Leukocyte Esterase (Auto) 0 Ahsan/uL 08/23/25 12:01 Assessment & Plan Assessment & Plan (1) Erectile dysfunction: Code(s): N52.9 - Male erectile dysfunction, unspecified Category: Medical (2) Bladder outlet obstruction: Code(s): N32.0 - Bladder-neck obstruction Category: Medical (3) Nocturia: Code(s): R35.1 - Nocturia Category: Medical Plan Twelve month follow-up PVR Orders: Orders AMB Urinalysis Automated Today Z13.9 - Encounter for screening, unspecified AMB Post Void Residual by ultrasound Today N40.0 - Benign prostatic hyperplasia without lower urinary tract symptoms Medications: Refilled tadalafil (Cialis) 5 mg PO DAILY 90 tabs 3RF 90 days N32.0 - Bladder-neck obstruction, R35.1 - Nocturia Patient Instructions: This note is constructed using voice recognition software. While every effort has been made to ensure accuracy safety equipment testing specialist errors may have been included. Imaging studies, laboratory and physical exam results were discussed and reviewed in detail. No major barriers to patient understanding were identified. An opportunity to ask questions regarding the treatment plan was provided. All questions were answered. The patient expressed understanding and agreement with the above treatment plan. The patient is aware they should contact our office by phone for worsening of their current condition or the appearance of new urologic symptoms. Compliance is encouraged with any medications and followup testing that is ordered. It is a privilege to participate in the urologic care of your patient. If you have any questions or concerns regarding treatment for the above conditions, or other urologic issues, please do not hesitate to contact me. The office telephone contact is [phone]. Sincerely, Dr Ramon Leavitt MD, [facility] - Urology Compassionate Specialist Care for the Genitourinary System Coding Level of Care Code Est Pt Level 3 (39337) Diagnoses Erectile dysfunction N52.9 Bladder outlet obstruction N32.0 Nocturia R35.1 CPT Codes Post Residual Void - PVR CPT Code: 68285-[id number] Void Residual by ultrasound ([id number])
--- OUTSIDE RECORDS SUMMARY | 2025-08-23 12:39 | XMS_ITS | Clinical Summary ---
Author Organization [facility] Address [address] [place] [address] Care Team Providers Care Fuel Storage Technician Name Role Phone Roslyn Monk APRN Primary Care Provider Allergies No known active allergies Medications Medication [...] 82 07/26/2022 4:25 PM EDT Temperature 36.4 C (97.5 F) 07/26/2022 4:25 PM EDT Respiratory Rate 16 07/26/2022 4:25 PM EDT [...] - PCV) 2016 COVID-19 Vaccine (4 - 2024-2 6 season) 2025 09/12/2021, 03/02/2021, 02/09/2021 Influenza Vaccine (#1) 2025 08/12/2021 RSV Adult > 60+ Yrs or (1 - 1-dose 75+ series) 2026 Hepatitis B Vaccines Aged Out No long er eligible based on patient's age to complete this topic RSV Ped < 20 months Aged Out No longe r eligible based on patient's age to complete this topic Advance Directives For more information, please contact: [phone] Documents on File Type Date Recorded Patient Loan Services Professional Expl anation Advance Directive and Living Will 07/12/2021 2:29 PM appt of health home care manager rn Care Teams Fuel Storage Technician Relationship Specialty Start Date End Date Roslyn Monk APRN [address] [facility] [address] [facility] [place] [address] PCP - General Family Medicine 07/26/22
--- OUTSIDE RECORDS SUMMARY | 2025-08-23 12:39 | XMS_ITS | Clinical Summary ---
Author Organization [facility] it Address [address] [place] [address] Care Team Providers Care Fresh Food Manager Name Role Phone Aleshia Roslyn DANIELLE Primary Care Provider Unavailabl e Immunizations Immunization Administration Dates Next Due Pfizer SARS-CoV-2 COVID-19, [...] 2001 Zoster Vaccines (1 of 2) 2001 Depression Screening 11/23/2024 COVID-19 Vaccine (4 - 2024-2 6 season) 2025 09/12/2021, 03/02/2021, 02/09/2021 Influenza Vaccine (#1) 2025 RSV Immunization Adult Patients (1 - [...] age to complete this topic Meningococcal B Vaccine Aged Out No l onger eligible based on patient's age to complete this topic RSV Immunization Patients Under 20 months Aged Out No longer eligible b ased on patient's age to complete this topic Varicella Vaccines Aged Out No longer eligible based on patient's age to complete this topic Advance Directives Documents on File Type Date Recorded Patient Supervisor Costuming Expl anation Health Care Decision (hx) 07/12/2021 DARRIN PAIZ DIRECTIVE Care Teams Fresh Food Manager Relationship Specialty Start Date End Date Roslyn Monk NP PCP - General Family Medicine 07/26/22
--- OUTSIDE RECORDS SUMMARY | 2025-08-23 12:39 | XMS_ITS | Clinical Summary ---
Author Organization [facility] Address [address] [place] [address] Phone Care Team Providers Care Curatorial Specialist Name Role Phone Anton Hyatt DO Primary Care Provider [phone] Allergies Active Allergy Reactions Criticality Noted Date Comments Lisinopril Cough 01/25/2025 Medications valsartan-hydroC HLOROthiazide (DIOVAN-HCT) 160-12.5 mg per tablet Take 1 tablet by mouth daily. 11/23/2024 Active tadalafiL (CIALIS) 5 MG tablet 10/23/2024 Active lovastatin (MEVACOR) 40 MG tablet Active doxazosin (CARDURA) 4 MG tablet Take 6 mg by mouth daily. 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 Essential hypertension 01/25/2025 Assessment & Plan (01/25/2025 8:30 AM EST): Benny Chan has hypertension and he is taking the above medication as directed without any side effects. his blood pressure is within normal limits and stable. he will follow up as directed. Elevated liver enzymes 01/25/2025 Assessment & Plan (01/25/2025 8:32 AM EST): Benny presents as a new patient to [facility]. If he chooses to stay I gave him guidance to sign a record release to the front office assistant so I can see his entire record in detail. He did give me some information regarding recent lab work-AST was elevated. He notes that he was seen by GI recently and guidance was to go for a biopsy but he is on the fence of this. He was asked my opinion I advised him that if he wants an answer that he should further investigate this with the biopsy and we will know more information going forward. I also informed him to follow-up in a month and to go for the above lab work prior to his next appointment and we will discuss things further. He will call if there are any other issues or concerns. He understands and agrees. Mixed hyperlipidemia 01/25/2025 Assessment & Plan (01/25/2025 8:31 AM EST): Benny has hypercholesterolemia hyperlipidemia and he is taking lovastatin. If he chooses to be patient here he will sign a record release and I will review his previous [id number] in a month for ongoing concerns. He will call if there are any other issues or concerns. He understands and agrees. Benign prostatic hyperplasia with urinary freque ncy 01/25/2025 Assessment & Plan (01/25/2025 8:31 AM EST): Recent PSA-elevated. He is followed by urology. He is taking Cialis daily. Immunizations Immunization Administration Dates Next Due COVID-19 (Pre-09/14) Pfizer Vaccine, mRNA, PF 09/12/2021,03/02/2021,02/09/2021 INFLUENZA, SPLIT VIRUS, TRIV ALENT W/ PRESERVATIVE IM 10/24/2015,10/17/2014,10/13/2013,09/07 Influenza High-Dose Quadriva lent Preservative Free IM 08/12/2021 Influenza High-Dose Trivalen t Preservative Free IM 11/01/2018,10/07/2017 Influenza Quadrivalent Adjuv anted Preservative Free IM 11/13/2023 Pneumococcal conjugate PCV13 10/24/2015 Pneumococcal polysaccharide PPSV23 11/07/2012 Tdap 10/30/2017 Family History Medical History Relation Comments Parkinson's disease Father Arthritis Mother Relation Status Comments Father Mother Alive Social History Tobacco Use Types Packs/Day Years Used Date Smoking Tobacco: Former Cigarettes 1 1980 Smokeless Tobacco: Never Tobacco Cessation:Counseling Given: Not Answered Alcohol Use Standard Drinks/Week Comments Not Currently 0 (1 standard drink = 0.6 oz pur e alcohol) less then once a month Child or Family Care Answer Date Record ed Do you have problems with on e of the following making it difficult for you to work, study, or receive health care? No 01/19/2025 Education Answer Date Recorded Are you interested in more education? Not on shailesh e 03/14/2024 Are you concerned about learning? Not on file 03/14/2024 No 03/14/2024 No 03/14/2024 Food Answer Date Recorded Within the past 6 months we worried whether our food would run out before we got money to buy more. Never True 01/19/2025 Within the past 6 months the food we bought just didn't last and we didn't have enough money to get more. Never True Residential Stability Answer Date Recor ded What is your housing situation today? 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 Zero (I did not move) 01/19/2025 Paying for Meds Answer Date Recorded Do you have trouble paying for medicines? No 01/19/2025 Paying Utility Bills Answer Date Record ed Do you have trouble paying your heating or elect ricity bill? No 01/19/2025 Transportation Answer Date Recorded Has the lack of transportati on kept you from medical appointments or from getting medications? No 01/19/2025 Digital Access Answer Date Recorded No 01/19/2025 Yes 01/19/2025 Do you have reliable internet access at home? Ye s 01/19/2025 Do you have a device (e.g., phone, tablet, computer) with a working camera? Yes 01/19/2025 Intimate Partner Violence Answer Date R ecorded Denied Basic Needs Not on file 01/19/2025 In the past 12 months have y ou been in a relationship with a person who hurts, threatens, or tries to control you? Deferred 01/19/2025 Worried food would run out Not on file 01/19 In the past 12 months have y ou been in a relationship with a person who hurts, threatens, or tries to control you? Deferred 01/19/2025 Sex and Gender Information Value Date Recorded Sex Assigned at Not on file Legal Sex Male 10:43 AM EDT Gender Identity Not on file Sexual Orientation Not on file Occupation Industry Job Start Date Job End Date retired Not on file Not on file Not on file Last Filed Vital Signs Vital Sign Reading Time Taken Comments Blood Pressure 108/66 01/25/2025 7:55 AM EST Pulse 64 01/25/2025 7:55 AM EST Temperature 36.3 C (97.3 F) 01/25/2025 7:55 AM EST Respiratory Rate - - Oxygen Saturation 93% 01/25/2025 7:55 AM EST Inhaled Oxygen Concentration - - Weight 80.4 kg (177 lb 3.2 oz) 01/25/2025 7:55 A M EST Height - - Body Mass Index - - Plan of Treatment Health Maintenance Due Date Last Done Comments LIPID PANEL 1950 HEPATITIS C SCREENING 1969 COLOGUARD 1996 COLONOSCOPY 1996 COLORECTAL CANCER SCREENING 1996 FIT TEST 1996 FOBT 1996 SIGMOIDOSCOPY 1996 VIRTUAL COLONOSCOPY 1996 ZOSTER VACCINES (1 of 2) 2001 ABDOMINAL AORTIC ANEURYSM (AAA) SCREENING 2016 PNEUMOCOCCAL VACCINES (50+ years) (3 of 3 - PCV20 or PCV21) 10/24/2020 10/24/2015, 11/07/2012 INFLUENZA VACCINE (#1) 2025 3, 08/12/2021, 11/01/2018, Additional history exists COVID-19 VACCINE ( - 2024- season) 2025 09/12/2021, 03/02/2021, 02/09/2021 BLOOD PRESSURE 07/28/2025 01/25/2025 RSV VACCINE (1 - 1-dose 75+ series) 2026 DEPRESSION SCREENING 01/19/2026 01/19/2025 CREATININE LEVEL 01/25/2026 01/25/2025 POTASSIUM LEVEL 01/25/2026 01/25/2025 SMOKING Hx and SMOKELESS TOBACCO SCREENING 01/25/2026 01/25/2025 Adult Td,Tdap Booster 10/30/2027 10/30/2017 HEPATITIS A VACCINES Aged Out No long er eligible based on patient's age to complete this topic HIB VACCINES Aged Out No longer eligi ble based on patient's age to complete this topic MENINGOCOCCAL VACCINES (ACWY) Aged Out No longer eligible based on patient's age to complete this topic MENINGOCOCCAL VACCINES (B) Aged Out N o longer eligible based on patient's age to complete this topic Medical Devices Not on file Procedures Procedure Name Priority Date/Time Associated Diagnosis Comments COMPREHENSIVE METABOLIC PANEL Routine 01/25/2025 8:36 AM EST Elevated liver enzymes from Last 3 Months or Most Recently Relevant to Health Maintenance Results * (ABNORMAL) Comprehensive metabolic panel (01/25/2025 8:36 AM EST) SODIUM 139 133 - 146 mmol/L [facility] POTASSIUM 4.0 3.3 - 5.1 mmol/L [facility] CHLORIDE 100 96 - 108 mmol/L [facility] CO2 29 21 - 35 mmol/L [facility] BUN 15 6 - 19 mg/dL [facility] CREATININE 1.20 0.5 - 1.5 mg/dL [facility] GLUCOSE 97 70 - 99 mg/dL [facility] ALBUMIN 4.2 3.9 - 4.8 g/dL [facility] TOTAL PROTEIN 7.5 6.5 - 8.0 g/dL [facility] CALCIUM 9.8 8.4 - 10.3 mg/dL [facility] ALKALINE PHOSPHATASE 60 39 - 117 U/L [facility] TOTAL BILIRUBIN 0.3 0.0 - 1.2 mg/dL [facility] AST 38(H) 0 - 37 U/L [facility] ALT 29 0 - 40 U/L [facility] GLOBULIN 3.3 1 - 4.8 g/dL [facility] EGFR 63 >59 mL/min/1.7 3m2 [facility] Comment:Estimated glomerular filtration rate calculated using the CKD-EPI refit equation. ANION GAP 14 10 - 20 mmol/L [facility] Blood 01/25/2025 8:36 AM EST 01/25/2025 8:39 AM EST Anton Hyatt DO LAB BLOOD ORDERABLES Final Resul t [facility] [address] [place] [address] from Last 3 Months or Most Recently Relevant to Health Maintenance Insurance AETNA O MEDICARE REPLACEMENT AETNA O MEDICARE REPLACEMENT AETNA O MEDICARE REPLACEMENT AETNA O MEDICARE REPLACEMENT AETNA O MEDICARE REPLACEMENT AETNA O MEDICARE REPLACEMENT [employer] Care Teams Curatorial Specialist Relationship Specialty Start Date End Date Anton Hyatt DO [address] [place] [address] [address] [place] [address] [email or web address] PCP - General Family Medicine 01/25/25 Additional Source Comments The information contained in this document represents components of the legal health record. It is not the complete legal health record.[facility]
--- OUTSIDE RECORDS SUMMARY | 2025-08-23 12:39 | XMS_ITS | Encounter Summary ---
Author Organization [facility] Address [address] [place] [address] Care Team Providers Care Inside Sales Professional Name Role Phone Franklyn Royal MD Unavailable [phone] Roslyn Adler RN Unavailable [phone] Wagner Loza DO Unavailable Unavailable Clifton Canseco MD Primary Care Provider [phone] Sadie Song MD Unavailable [phone] Reason for Visit * Reason Comments Medication Refill Encounter Details Date Type Department Care Team ([facility] st Contact Info) Description 09/04/2023 Refill [facility] Department of Urology [address] [place] [address] Anton Schafer MD [address] [place] [id number] Social History Tobacco Use Types Packs/Day Years [...] Assigned at Male 01/04/2025 8:41 AM EST Legal Sex Male 3:15 PM EDT Gender Identity Male 01/04/2025 8:41 AM EST Sexual Orientation Heterosexual (straight) 01/04 8:41 AM EST documented as of this encounter Plan of Treatment Not on file documented as of this encounter Visit Diagnoses Not on filedocumented in this encounter Care Teams Inside Sales Professional Relationship Specialty Start Date End Date Clifton Canseco MD [address] [address] PCP - General Cardiovascular Disease 12/10/18 Franklyn Royal MD [address] [address] Hepatology 07/27/18 Roslyn Adler, RN [address] [address] Registered Nurse Hepatology 07/27/18 Wagner Loza DO [address] [address] Nephrology 08/04/18 Sadie Song MD [address] [place] [address] Referring Provider 10/05/24 documented as of this encounter
--- OUTSIDE RECORDS SUMMARY | 2025-08-23 12:39 | XMS_ITS ---
Author Name [facility] Organization Unknown History of Medication Use Medication Directions Dispensed Refills Start Date End Date Stat us tadalafil (CIALIS) 20 MG tablet TAKE 1 TABLET BY MOUTH ONCE NEEDED FOR SEXUAL ACTIVITY; TAKE 1 TABLET 1 HOUR PRIOR TO SEXUAL ACTIVITY; NOT TO EXCEED MORE THAN 3 TIMES PE 11/08/2024 active buPROPion (WELLBUTRIN SR) 150 MG 12 hr tablet Take by mouth 2 (two) times a day. active doxazosin (CARDURA) 4 MG tablet Take 1.5 tablets (6 mg total) by mouth. active valsartan-hydroCHLOR Othiazide (DIOVAN-HCT) 160-12.5 MG per tablet Take 1 tablet by mouth daily. 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 [id number] completed Covid-19 MRNA Vaccine - Pfiz er 12+ (Purple Cap) 02/09/2021 [facility] [id number] completed Tdap 10/30/2017 [facility] completed Pneumococcal Conjugate 13-Valent 10/24/2015 [facility] completed Pneumococcal Polysaccharide 23-Valent 11/07/2012 [facility] completed Encounters Encounter Type Encounter Reason Primary Diagnosis Location Date Ambulatory Abnormal results of liver function studies Abnormal results of liver function studies [facility] 01/06/2025 Ambulatory Encounter for immunization [facility] 09/12/2021 Care Team Organization Name Specialty Phone Email Start Date End Da te [facility] 2025 025 [facility] 09/13/2021 025 [facility] 09/12/2021 021
--- OUTSIDE RECORDS SUMMARY | 2025-08-23 12:39 | XMS_ITS | Encounter Summary ---
Author Organization [facility] Address [address] [place] [address] Care Team Providers Care Supervisor Special Services Name Role Phone Damien Canseco MD Primary Care Provider Franklyn Royal MD Unavailable [phone] Roslyn Adler RN Unavailable [phone] Wagner Loza DO Unavailable Unavailable Clifton Canseco MD Primary Care Provider [phone] Sadie Song MD Unavailable [phone] Encounter Details Date Type Department Care Team (Late st Contact Info) Description 07/27/2018 Scanned Document [facility] [address] [address] Roslyn Adler, RN [address] [phone] Social History Tobacco Use Types Packs/Day Years [...] on filedocumented in this encounter Care Teams Supervisor Special Services Relationship Specialty Start Date End Date Damien Canseco MD PCP - General Internal Medicine 06/10/18 12/09/18 Clifton Canseco MD [address] [address] PCP - General Cardiovascular Disease 12/10/18 Franklyn Royal MD [address] [address] Hepatology 07/27/18 Roslyn Adler RN [address] [address] Registered Nurse Hepatology 07/27/18 Wagner Loza DO [address] [address] Nephrology 08/04/18 Sadie Song MD [address] [place] [address] Referring Provider 10/05/24 documented as of this encounter
--- OUTSIDE RECORDS SUMMARY | 2025-08-23 12:39 | XMS_ITS | Clinical Summary ---
Author Organization [facility] Address [address] [place] [address] Care Team Providers Care Cross Country Coach Name Role Phone Sherita Bueno Primary Care Provider [phone] Allergies No known active allergies Medications buPROPion [...] COVID-19 Vaccine (1 - 2023-2 5 season) 2025 Influenza Vaccine (#1) 2025 HPV Vaccines Aged Out No longer eligi ble based on patient's age to complete this topic Hepatitis A Vaccines Aged Out No long er eligible based on patient's age to complete this topic Meningococcal Vaccine Aged Out No jagdish ney eligible based on patient's age to complete this topic Insurance [employer] [facility] Address: [address] [address] Care Teams Cross Country Coach Relationship Specialty Start Date End Date Sherita Bueno DO [address] [place] [address] PCP - General Internal Medicine 02/22/20
--- OUTSIDE RECORDS SUMMARY | 2025-08-23 12:39 | XMS_ITS | Encounter Summary ---
Author Organization [facility] Address [address] [place] [address] Care Team Providers Care Machine Stamper Name Role Phone Damien Canseco MD Primary Care Provider Franklyn Royal MD Unavailable [phone] Roslyn Adler RN Unavailable [phone] Wagner Loza DO Unavailable Unavailable Clifton Canseco MD Primary Care Provider [phone] Sadie Song MD Unavailable [phone] Encounter Details Date Type Department Care Team (Late st Contact Info) Description 08/03/2018 Scanned Document [facility] [address] [place] [phone] Ana Silva MA 85 [facility] [address] [place] [address] Social History Tobacco Use Types Packs/Day Years [...] on filedocumented in this encounter Care Teams Machine Stamper Relationship Specialty Start Date End Date Damien Canseco MD PCP - General Internal Medicine 06/10/18 12/09/18 Clifton Canseco MD [address] [address] PCP - General Cardiovascular Disease 12/10/18 Franklyn Royal MD [address] [place] [address] Hepatology 07/27/18 Roslyn Adler RN [address] [address] Registered Nurse Hepatology 07/27/18 Wagner Loza DO [address] [place], [place] [phone] Nephrology 08/04/18 Sadie Song MD [address] [place] [address] Referring Provider 10/05/24 documented as of this encounter
--- OUTSIDE RECORDS SUMMARY | 2025-08-23 12:39 | XMS_ITS | Clinical Summary ---
Author Organization [facility] Address [address] [place] [address] Care Team Providers Care Forest Ranger Technician Name Role Phone Franklyn Royal MD Unavailable [phone] Roslyn Adler RN Unavailable [phone] Wagner Loza DO Unavailable Unavailable Clifton Canseco MD Primary Care Provider Sadie Song MD Unavailable [phone] Allergies No known active allergies Medications amLODIPine (NORVASC) 5 MG tablet Take 5 mg by mouth daily. 0 09/08/2018 Active buPROPion (WELLBUTRIN SR) 150 MG 12 hr tablet Take by mouth 2 (two) times a day. Active lovastatin (MEVACOR) 10 MG tablet Take 10 mg by mouth daily. 1 10/05/2018 Active lisinopril-hydr ochlorothiazide (PRINZIDE,ZESTO RETIC) 20-12.5 MG per tablet Take by mouth. [...] tablets (6 mg total) by mouth. Active valsartan-hydro CHLOROthiazide (DIOVAN-HCT) 160-12.5 MG per tablet Take 1 [...] discussed, will continue to monitor. Impression - [id number]: - chronic and stable, pt to continue amlodipine and lisinopril-HCTZ at current doses, diet/exercise as discussed, will continue to monitor. Immunizations Immunization Administration Dates Next Due Covid-19 MRNA Vaccine [...] 76 01/06/2025 9:18 AM EST Temperature 36.2 C (97.2 F) 01/06/2025 9:18 AM EST Respiratory Rate 16 12/22/2018 10:10 AM EST Oxygen Saturation 99% 01/06/2025 9:18 AM EST Inhaled Oxygen Concentration - - Weight 79.2 kg (174 lb 9.7 oz) 01/06/2025 9:18 A M EST Height 177.8 cm (5' 10 ) 12/17/2018 2:12 PM EST Body Mass Index 25.05 12/17/2018 2:12 PM EST Plan of Treatment Health Maintenance Due Date Last Done Comments Advance Care Planning 1950 Hepatitis C Virus Screening 1950 Zoster (Shingles) Vaccine (1 of 2) 2001 RSV Vaccine 60 years and older and Patients (1 - Risk 60-74 years 1-dose series) 2011 Abdominal Aortic Aneurysm (AAA) Screening 2016 Pneumococcal Vaccines 50+ (3 of 3 - PCV20 or PCV21) 10/24/2020 10/24/2015, 11/07/2012 Influenza Vaccine 06/23/2025 09/26/2022, 08/12/2021, 11/01/2018 COVID-19 Vaccine (4 - 2024-2 6 season) 2025 09/12/2021, 03/02/2021, 02/09/2021 DTaP/Tdap/Td Vaccines (2 - T d or Tdap) 10/30/2027 10/30/2017 Colonoscopy 12/22/2028 12/22/2018 Hepatitis B Vaccines Aged Out No long er eligible based on patient's age to complete this topic Insurance AETNA [place] MEDIC[place] [facility] [place]) celeste Marks [facility] [place] [address] Care Teams Forest Ranger Technician Relationship Specialty Start Date End Date Clifton Canseco MD [address] [facility] [address] [place] [address] PCP - General Cardiovascular Disease 12/10/18 Franklyn Royal MD [address] [address] Hepatology 07/27/18 Roslyn Adler, RN [address] [address] Registered Nurse Hepatology 07/27/18 Wagner Loza DO [address] [address] Nephrology 08/04/18 Sdaie Song MD [address] [place] [address] Referring Provider 10/05/24
--- OUTSIDE RECORDS SUMMARY | 2025-08-23 12:39 | XMS_ITS | Encounter Summary ---
Author Organization [facility] Address [address] [place] [address] Care Team Providers Care Cooker Loader Name Role Phone Damien Canseco MD Primary Care Provider Franklyn Royal MD Unavailable [phone] Roslyn Adler RN Unavailable [phone] Wagner Loza DO Unavailable Unavailable Clifton Canseco MD Primary Care Provider [phone] Sadie Song MD Unavailable [phone] Encounter Details Date Type Department Care Team (Late st Contact Info) Description 08/03/2018 Scanned Document [facility] [address] [place] [phone] Ana Silva MA 85 [facility] [address] [place] [address] Social History Tobacco Use Types Packs/Day Years [...] on filedocumented in this encounter Care Teams Cooker Loader Relationship Specialty Start Date End Date Damien Canseco MD PCP - General Internal Medicine 06/10/18 12/09/18 Clifton Canseco MD [address] [address] PCP - General Cardiovascular Disease 12/10/18 Franklyn Royal MD [address] [place] [address] Hepatology 07/27/18 Roslyn Adler RN [address] [address] Registered Nurse Hepatology 07/27/18 Wagner Loza DO [address] [place], [place] [id number] Nephrology 08/04/18 Sadie Song MD [address] [place] [address] Referring Provider 10/05/24 documented as of this encounter
--- OUTSIDE RECORDS SUMMARY | 2025-08-23 12:39 | XMS_ITS | Clinical Summary ---
Author Organization [facility] Address [address] [place] [address] Care Team Providers Care Election Supervisor Name Role Phone Duane Dumas Primary Care [...] of balance 11/01/2018 Overview (12/27/2023): Impression - [id number]: - mild, importance of maintaining good balanced discussed, dalia as pt's age, pt agrees, referred to PT for further eval/tx, will continue to monitor. Elevated serum creatinine 06/25/2018 Overview (12/27/2023): Impression - [id number]: - new finding for pt, may be r/t NSAID use and pt has stopped this, repeat BMP pending and urine labs pending for further eval, will contact pt with results, pt to continue to stay well-hydrated, will continue to monitor. Elevated liver enzymes 12/14/2017 Overview (12/27/2023): Impression - 77Kxo2024: - no s/s, pt has f/u appt with GI shortly, will continue to monitor. Impression - 24Rvs4100: - no s/s and no need to [...] monitor. Hyperlipidemia 12/11/2017 Overview (12/27/2023): Impression - 78Lxs2659: - fasting lipids pending, pt to continue lovastatin at current dose, diet/exercise as discussed, will contact pt with results and adjust tx if indicated, will continue to monitor. Impression - [id number]: - fasting lipids pending, pt to continue [...] discussed, will continue to monitor. Impression - 75Iaw5927: - chronic and stable, pt to continue amlodipine and lisinopril-HCTZ at current doses, diet/exercise as discussed, will continue to monitor. Immunizations Immunization Administration Dates Next Due Influenza,high dose seasonal,trivalent,PF (Fluzone HD) 11/01/2018,10/07/2017 Influenza,seasonal,trivalent ,preserva tive (FLUZONE MDV) 10/24/2015,10/17/2014,10/13/2013,2011 PCV-13 10/24/2015 PPV23 (Pneumovax) 11/07/2012 Tdap 10/30/2017 Family History Medical History Relation Name Comments Other Brother Opioid overdose : Brother Neuromuscular Disorder Father Parki nson's disease : Father Cancer (?Type) Maternal grandfather malmatt nant neoplasm : Maternal Grandfather Autoimmune dz Sister [...] 73 11/01/2018 2:06 PM EST Temperature 36.8 C (98.3 F) 06/17/2018 3:44 PM EDT Respiratory Rate 16 11/01/2018 2:06 PM EST [...] 10/24/2020 10/24/2015, 11/07/2012 COVID-19 Vaccine (1 - season) 2025 Influenza (#1) 2025 11/01/2018, 09/23, 10/24/2015, Additional history exists RSV (1 - 1-dose 75+ series) 2026 DTaP/Tdap/Td (2 - Td or Tdap) 10/30/2027 10/30/2017 Abdominal Aorta Imaging Discontinued 12/14/2017 HPV Vaccine (No Doses Required) Completed Hep A Aged Out No longer eligi [...] by Cecil Jain MD [facility] Reported To: Destinee Forte PHCT CONVERSIONS Anatomical Region Laterality Modality Other 12/14/2017 4:24 PM EST us Destinee Forte [facility] Final Result * COLONOSCOPY (11/06/2011 9:01 AM EST) COLONOSCOPY, RESULT Diverticulosis PHCT CONVERSIONS DATE NEXT SCREEN VISIT 5 Years PHCT CONVERSIONS 11/06/2011 9:01 AM EST us Php Unknown Prov PROCEDURES Final Result PHCT CONVERSIONS from Last 3 Months or Most Recently Relevant to Health Maintenance Care Teams Election Supervisor Relationship Specialty Start Date End Date Duane Dumas PCP - General 06/29/23
== END 2025-08-23 11:58 | disposition home or self-care (01) ==
LOC: HO.HUSH 11:05
PROVIDERS: PCP Internal Medicine; Visit Provider Urology
DX: N52.9 Male erectile dysfunction, unspecified (principal); N32.0 Bladder-neck obstruction; R35.1 Nocturia; Z13.9 Encounter for screening, unspecified
CPT/HCPCS: 99213

== ENCOUNTER → 2025-08-23 11:04 | Outpatient (BNVA) | payer MEDICARE, SELFPAY | PROVIDERS: PCP Internal Medicine; Visit Provider Urology | DX: N52.9 Male erectile dysfunction, unspecified (principal); N32.0 Bladder-neck obstruction; R35.1 Nocturia | CPT/HCPCS: 51798; 81003; 99212 ==

== ENCOUNTER 2025-10-03 12:32 | Outpatient (REF) | payer MEDICARE, SELFPAY ==
--- OUTSIDE RECORDS SUMMARY | 2025-10-03 14:21 | XMS_ITS | Encounter Summary ---
Author Organization [facility] Address [address] [place] [address] Care Team Providers Care Rotary Driller Helper Name Role Phone Damien Canseco MD Primary Care Provider Franklyn Royal MD Unavailable [phone] Roslyn Adler RN Unavailable [phone] Wagner Loza DO Unavailable Unavailable Clifton Canseco MD Primary Care Provider [phone] Sadie Song MD Unavailable [phone] Encounter Details Date Type Department Care Team (Late st Contact Info) Description 08/03/2018 Scanned Document [facility] [address] [place] [phone] Ana Silva MA [address] [facility] [address] [place] [address] Social History Tobacco Use Types Packs/Day Years [...] on filedocumented in this encounter Care Teams Rotary Driller Helper Relationship Specialty Start Date End Date Damien Canseco MD PCP - General Internal Medicine 06/10/18 12/09/18 Clifton Canseco MD [address] [address] PCP - General Cardiovascular Disease 12/10/18 Franklyn Royal MD [address] [place] [address] Hepatology 07/27/18 Roslyn Adler RN [address] [address] Registered Nurse Hepatology 07/27/18 Wagner Loza DO [address] [place], [place] [id number] Nephrology 08/04/18 Sadie Song MD [address] [place] [address] Referring Provider 10/05/24 documented as of this encounter
--- OUTSIDE RECORDS SUMMARY | 2025-10-03 14:21 | XMS_ITS | Clinical Summary ---
Author Organization [facility] Address [address] [place] [address] Care Team Providers Care Director Hedis Name Role Phone Franklyn Royal MD Unavailable [phone] Roslyn Adler RN Unavailable [phone] Wagner Loza DO Unavailable Unavailable Clifton Canseco MD Primary Care Provider [phone] Sadie Song MD Unavailable [phone] Allergies No known active allergies Medications [...] discussed, will continue to monitor. Impression - 41Crq3111: - chronic and stable, pt to continue [...] Planning 1950 Hepatitis C Virus Screening 1950 RSV Vaccine 50 years and older and Patients (1 - Risk 50-74 years 1-dose series) 2001 Zoster (Shingles) Vaccine (1 of 2) [...] complete this topic Insurance [employer] MGD MEDICARE [facility] (AUTO/LIABILITY) celeste [facility] [place] [address] Care Teams Director Hedis Relationship Specialty Start Date End Date Clifton Canseco MD [address] [facility] [address] [place] [address] PCP - General Cardiovascular Disease 12/10/18 Franklyn Royal MD [address] [address] Hepatology 07/27/18 Roslyn Adler, RN [address] [address] Registered Nurse Hepatology 07/27/18 Wagner Loza DO [address] [address] Nephrology 08/04/18 Sadie Song MD [address] [place] [address] Referring Provider 10/05/24
--- OUTSIDE RECORDS SUMMARY | 2025-10-03 14:21 | XMS_ITS | Clinical Summary ---
Author Organization [facility] it Address [address] [place] [address] Care Team Providers Care Lockmaker Name Role Phone Aleshia Roslyn DANIELLE Primary [...] Documents on File Type Date Recorded Patient Roll Cleaner Expl anation Health Care Decision (hx) 07/12/2021 DARRIN PAIZ DIRECTIVE Care Teams Lockmaker Relationship Specialty Start Date End Date Roslyn Monk NP PCP - General Family Medicine 07/26/22
--- OUTSIDE RECORDS SUMMARY | 2025-10-03 14:21 | XMS_ITS | Clinical Summary ---
Author Organization [facility] Address [address] [place] [address] Care Team Providers Care Concrete Engineering Technician Name Role Phone Duane Dumas Primary Care [...] of balance 11/01/2018 Overview (12/27/2023): Impression - [id number]: - mild, importance of maintaining good balanced discussed, dalia as pt's age, pt agrees, referred to PT for further eval/tx, will continue to monitor. Elevated serum creatinine 06/25/2018 Overview (12/27/2023): Impression - 60Ocr1575: - new finding for pt, may be r/t NSAID use and pt has stopped this, repeat BMP pending and urine labs pending for further eval, will contact pt with results, pt to continue to stay well-hydrated, will continue to monitor. Elevated liver enzymes 12/14/2017 Overview (12/27/2023): Impression - [id number]: - no s/s, pt has f/u appt with GI shortly, will continue to monitor. Impression - [id number]: - no s/s and no need to [...] monitor. Hyperlipidemia 12/11/2017 Overview (12/27/2023): Impression - 94Iin2503: - fasting lipids pending, pt to continue lovastatin at current dose, diet/exercise as discussed, will contact pt with results and adjust tx if indicated, will continue to monitor. Impression - 58Abk1093: - fasting lipids pending, pt to continue [...] discussed, will continue to monitor. Impression - 80Hak5780: - chronic and stable, pt to continue [...] 10/24/2020 10/24/2015, 11/07/2012 COVID-19 Vaccine (1 - 2024- season) 2025 Influenza (#1) 2025 11/01/2018, 09/23, [...] by Cecil Jain MD [facility] Reported To: Destinee Forte PHCT CONVERSIONS Anatomical Region Laterality Modality Other 12/14/2017 4:24 PM EST us Destinee Forte [facility] Final Result * COLONOSCOPY (11/06/2011 9:01 AM EST) COLONOSCOPY, RESULT Diverticulosis PHCT CONVERSIONS DATE NEXT SCREEN VISIT 5 Years PHCT CONVERSIONS 11/06/2011 9:01 AM EST us Php Unknown Prov PROCEDURES Final Result PHCT CONVERSIONS from Last 3 Months or Most Recently Relevant to Health Maintenance Care Teams Concrete Engineering Technician Relationship Specialty Start Date End Date Duane Dumas PCP - General 06/29/23
--- OUTSIDE RECORDS SUMMARY | 2025-10-03 14:21 | XMS_ITS | Encounter Summary ---
Author Organization [facility] Address [address] [place] [address] Care Team Providers Care Animal Nutrition Consultant Name Role Phone Damien Canseco MD Primary Care Provider Franklyn Royal MD Unavailable [phone] Roslyn Adler RN Unavailable [phone] Wagner Loza DO Unavailable Unavailable Clifton Canseco MD Primary Care Provider [phone] Sadie Song MD Unavailable [phone] Encounter Details Date Type Department Care Team (Late st Contact Info) Description 08/03/2018 Scanned Document [facility] [address] [place] [phone] Ana Silva MA 85 [facility] [address] [place] [address] Social History Tobacco Use Types Packs/Day Years [...] on filedocumented in this encounter Care Teams Animal Nutrition Consultant Relationship Specialty Start Date End Date Damien Canseco MD PCP - General Internal Medicine 06/10/18 12/09/18 Clifton Canseco MD [address] [address] PCP - General Cardiovascular Disease 12/10/18 Franklyn Royal MD [address] [place] [address] Hepatology 07/27/18 Roslyn Adler RN [address] [address] Registered Nurse Hepatology 07/27/18 Wagner Loza DO [address] [place], [place] [id number] Nephrology 08/04/18 Sadie Song MD [address] [place] [address] Referring Provider 10/05/24 documented as of this encounter
--- OUTSIDE RECORDS SUMMARY | 2025-10-03 14:21 | XMS_ITS | Encounter Summary ---
Author Organization [facility] Address [address] [place] [address] Care Team Providers Care Broodmare Foreman Name Role Phone Damien Canseco MD Primary Care Provider [phone] Franklyn Royal MD Unavailable [phone] Roslyn Adler RN Unavailable [phone] Wagner Loza DO Unavailable Unavailable Clifton Canseco MD Primary Care Provider [phone] Sadie Song MD Unavailable [phone] Encounter Details Date Type Department Care Team (Late st Contact Info) Description 07/27/2018 Scanned Document [facility] [address] [address] Roslyn Adler, RN [address] [id number] Social History Tobacco Use Types Packs/Day Years [...] on filedocumented in this encounter Care Teams Broodmare Foreman Relationship Specialty Start Date End Date Damien Canseco MD PCP - General Internal Medicine 06/10/18 12/09/18 Clifton Canseco MD [address] [address] PCP - General Cardiovascular Disease 12/10/18 Franklyn Royal MD [address] [address] Hepatology 07/27/18 Roslyn Adler RN [address] [address] Registered Nurse Hepatology 07/27/18 Wagner Loza DO [address] [address] Nephrology 08/04/18 Sadie Song MD [address] [place] [address] Referring Provider 10/05/24 documented as of this encounter
--- OUTSIDE RECORDS SUMMARY | 2025-10-03 14:21 | XMS_ITS | Clinical Summary ---
Author Organization [facility] Address [address] [place] [address] Phone Care Team Providers Care Accountant Manager Name Role Phone Anton Hyatt DO Primary Care Provider [phone] Allergies Active Allergy Reactions Criticality Noted Date [...] Benny presents as a new patient to [facility]. If he chooses to stay I gave him guidance to sign a record release to the front office spec so I can see his entire record [...] release and I will review his previous [id number] in a month for ongoing concerns. He [...] patient's age to complete this topic IPV VACCINES Aged Out No longer eligi ble [...] Date/Time Associated Diagnosis Comments COMPREHENSIVE METABOLIC PANEL (CMP) Routine 01/25/2025 8:36 AM EST Elevated liver enzymes from Last 3 Months or Most Recently Relevant to Health Maintenance Results * (ABNORMAL) Comprehensive metabolic panel (01/25/2025 8:36 AM EST) SODIUM 139 133 - 146 mmol/L [facility] POTASSIUM 4.0 3.3 - 5.1 mmol/L [facility] CHLORIDE 100 96 - 108 mmol/L [facility] CO2 29 21 - 35 mmol/L [facility] BUN 15 6 - 19 mg/dL [facility] CREATININE 1.20 0.5 - 1.5 mg/dL [facility] GLUCOSE 97 70 - 99 mg/dL [facility] ALBUMIN 4.2 3.9 - 4.8 g/dL [facility] TOTAL PROTEIN 7.5 6.5 - 8.0 g/dL [facility] CALCIUM 9.8 8.4 - 10.3 mg/dL [facility] ALKALINE PHOSPHATASE 60 39 - 117 U/L [facility] TOTAL BILIRUBIN 0.3 0.0 - 1.2 mg/dL [facility] AST 38(H) 0 - 37 U/L [facility] ALT 29 0 - 40 U/L [facility] GLOBULIN 3.3 1 - 4.8 g/dL [facility] EGFR 63 >59 mL/min/1.7 3m2 [facility] Comment:Estimated glomerular filtration rate calculated using the CKD-EPI refit equation. ANION GAP 14 10 - 20 mmol/L [facility] Blood 01/25/2025 8:36 AM EST 01/25/2025 8:39 AM EST us Anton Hyatt DO LAB BLOOD BKR ORDERABLES Final R esult [address] [address] from Last 3 Months or Most Recently Relevant to Health Maintenance Insurance AETNA O MEDICARE REPLACEMENT [facility] MED[facility] REPLACEMENT AETNA O MEDICARE REPLACEMENT AETNA O MEDICARE REPLACEMENT AETNA O MEDICARE REPLACEMENT AETNA PPO MEDICARE REPLACEMENT [employer] Care Teams Accountant Manager Relationship Specialty Start Date End Date Anton Hyatt DO [address] [place] [address] [address] [place] [address] [email or web address] PCP - General Family Medicine 01/25/25 Additional Source Comments The information contained in this document represents components of the legal health record. It is not the complete legal health record.[facility]
--- OUTSIDE RECORDS SUMMARY | 2025-10-03 14:21 | XMS_ITS | Clinical Summary ---
Author Organization [facility] Address [address] [place] [address] Care Team Providers Care Crew Lead Name Role Phone Sherita Bueno Primary Care Provider [phone] Allergies No known active allergies Medications buPROPion [...] to complete this topic Insurance EMPLOYEE [facility] Address: [address] [address] Care Teams Crew Lead Relationship Specialty Start Date End Date Sherita Bueno DO [address] [place] [address] PCP - General Internal Medicine 02/22/20
[2025-10-03 16:14] LABS: MANUAL DIFF FLAG NO
[2025-10-03 16:26] LABS: Hematocrit 44.7 % (42.0-52.0); Hemoglobin 14.8 g/dl (14.0-18.0); Imm Gran Abs Auto 0.01 X10*3/uL (0.00-0.03); Imm Gran Pct Auto 0.2 % (0.0-0.4); Lymphocytes Absolute Auto 1.4 X10*3/uL (1.2-4.9); Mean Corpuscular HGB Conc 33.1 g/dl (31.0-36.0); Mean Corpuscular Hemoglobin 28.2 pg (27.0-33.0); Mean Corpuscular Volume 85.3 fL (80.0-98.0); NRBC Abs Auto 0.000 X10*3/uL (0.0-0.012); NRBC Pct Auto 0.0 /100WBC (0.0-0.2); Platelet Count 198 X10*3/uL (160-400); Red Blood Count 5.24 X10*6/uL (4.60-5.80); White Blood Count 4.4 X10*3/uL (4.8-10.8)
[2025-10-03 16:39] LABS: Alanine Aminotransferase 39 U/L (0-40); Albumin Level 4.6 g/dL (3.5-5.0); Alkaline Phosphatase 53 U/L (39-117); Anion Gap 10 (12-20); Aspartate Amino Transferase 55 U/L (5-37); Blood Urea Nitrogen 22 mg/dL (9-16); Calcium 9.3 mg/dL (8.4-10.2); Carbon Dioxide 30 mmol/L (22-29); Chloride 101 mmol/L (96-108); Cholesterol 202 mg/dL (<200); Estimated Glomerular Filt Rate > 60; HDL Cholesterol 68 mg/dL (>40); Potassium 4.0 mmol/L (3.3-5.1); Sodium 137 mmol/L (135-145); Total Protein 7.4 g/dL (6.5-8.0); Triglycerides 60 mg/dL (<150)
[2025-10-03 16:47] LABS: Appearance Urine Clear; Glucose Urine UA Negative (Negative); PH 7.5 (5.0-9.0); Specific Gravity - Urine 1.015 (1.005-1.025)
== END 2025-10-03 12:33 | disposition home or self-care (01) ==
LOC: HO.HMGCLDS 12:32
PROVIDERS: PCP Internal Medicine; Visit Provider Internal Medicine
DX: I10 Essential (primary) hypertension (principal); E78.5 Hyperlipidemia, unspecified
CPT/HCPCS: 36415; 80053; 80061; 81001; 85025